=== PATIENT | male | born 1935 | race Caucasian/White ===

== ENCOUNTER 2018-10-31 22:37 | Inpatient (IN) | payer OTHER ==
--- OUTSIDE RECORDS SUMMARY | 2018-10-31 22:39 | XMS REPORT | Clinical Summary ---
:1935 Author Organization [facility] Address [address] [place] [address] Care Team Providers Name Role Phone Unavailable Primary Care Provider Unavailable Allergies Not on File Medications Not on file Active Problems Not on file Social History Tobacco Use Types Packs/Day Years Used Date Never Assessed Sex Assigned at Date Recorded Not on file Job Start Date Occupation Industry Not on file Not on file Not on file Travel History Travel Start Travel End No recent travel history available. Last Filed Vital Signs Not on file Plan of Treatment Not on file Results Not on fileafter 10/30/2017
[2018-10-31 23:29] LABS: Absolute Lymphocytes (CBC) 1.1 K/uL (0.7-4.9); Absolute Monocytes 0.5 K/uL (0.1-1.3); Absolute Neutrophil 6.5 K/uL (1.8-8.0); Basophils % 1.1 % (0-1.3); Eosinophils % 2.9 % (0-4.4); Hematocrit 34.7 % (39.6-49.0); Lymphocytes % 13.5 % (15.3-44.8); MPV 8.2 fL (7.6-11.3); Monocytes % 6.2 % (3.3-12.3); Protime INR 1.26; RBC Red Blood Cell Count 3.87 M/uL (4.33-5.43)
[2018-10-31 23:42] LABS: ALT/SGPT 18 U/L (12-78); AST/SGOT 19 U/L (15-37); Albumin 2.1 g/dL (3.4-5.0); Alkaline Phosphatase 118 U/L (45-117); BUN Blood Urea Nitrogen 40 mg/dL (7-18); Bicarbonate 28 mmol/L (21-32); Bilirubin Direct < 0.1 mg/dL (0-0.2); Bilirubin Total 0.3 mg/dL (0.2-1.0); Glucose Level 114 mg/dL (74-106); Magnesium 2.7 mg/dL (1.8-2.4); NT PRO-BNP 3992 pg/mL (<450); Potassium 3.6 mmol/L (3.5-5.1); Protein, Total 7.1 g/dL (6.4-8.2); Sodium Level 159 mmol/L (136-145); Troponin (Emerg Dept Use Only) 0.04 ng/mL (0.0-0.045)
[2018-11-01 00:22] LABS: Urine Amorphous Sediment 2+ /HPF (NONE SEEN); Urine Culture Reflex Order NOT NEEDED
[2018-11-01 00:25] LABS: Urine Bacteria <20 /HPF (NONE SEEN); Urine RBC NONE SEEN /HPF (NONE SEEN)
--- NOTE | 2018-11-01 00:46 | ER ---
Nurse's Notes [facility] Name: Juan Bender Age: 83 yrs Sex: Male : 1935 Arrival Date: 10/31/2018 Time: 22:39 Bed 27 Private MD: Diagnosis: Hyperosmolality and hypernatremia;Dehydration Presentation: 10/31 22:39 Presenting complaint: EMS states: patient is from [facility], because rv of elevated Sodium and Chloride. blood was drawn after dinner. patient then started to get aggressive. no fever, or other symptoms reported. Transition of care: patient was not received from another setting of care. Onset of symptoms was October 31, 2018 at 20:00. Risk Assessment: Do you want to hurt yourself or someone else? Patient reports no desire to harm self or others. Initial Sepsis Screen: Does the patient meet any 2 criteria? No. Patient's initial sepsis screen is negative. Does the patient have a suspected source of infection? No. Patient's initial sepsis screen is negative. Care prior to arrival: None. 22:39 Method Of Arrival: EMS: [facility] rv 22:39 Acuity: ADE 3 rv Triage Assessment: 22:42 General: Appears in no apparent distress. uncomfortable, Behavior is combative, rv uncooperative. Pain: Unable to use pain scale. Patient is disoriented. EENT: No deficits noted. Neuro: Level of Consciousness is confused, Oriented to none. Cardiovascular: Capillary refill < 3 seconds. Respiratory: Airway is patent. GI: No signs and/or symptoms were reported involving the gastrointestinal system. : No signs and/or symptoms were reported regarding the genitourinary system. Derm: Skin with poor turgor seen blood stain on left hand. probably from checking the blood sugar. Musculoskeletal: No signs and/or symptoms reported regarding the musculoskeletal system. Historical: - Allergies: 22:52 Acetaminophen; rv 22:52 cefotaxime; rv 22:52 Hydrocodone-Acetaminophen; rv 22:52 MEPERIDINE \T\ RELATED; rv 22:52 oxycodone; rv - Home Meds: 22:52 ibuprofen 200 mg Oral cap 2 caps every 4-6 hours [Active]; ICaps AREDS 7,160-113-100 rv [id number] oral TbEC [Active]; losartan 50 mg oral tab [Active]; potassium chloride 20 mEq Oral TbER [Active]; thiamine HCl (vitamin B1) 100 mg Oral tab [Active]; - PMHx: 22:52 CAD; Cancer; Dementia; rv - PSHx: 22:52 CABG; rv - Immunization history:: Adult Immunizations up to date. - Social history:: Smoking status: unknown. - Ebola Screening: : No symptoms or risks identified at this time. Screenin:53 Abuse screen: Denies threats or abuse. Denies injuries from another. Nutritional rv screening: No deficits noted. Tuberculosis screening: No symptoms or risk factors identified. Fall Risk None identified. Assessment: 22:40 General: Appears in no apparent distress. uncomfortable, Behavior is combative, ca1 inappropriate for age. Pain: Unable to use pain scale. Patient is disoriented. Patient appears to be moaning. Neuro: Level of Consciousness is awake, confused, Oriented to none reports this is pt's baseline neurologic status. Cardiovascular: Heart tones S1 S2 present Capillary refill < 3 seconds Patient's skin is warm and dry. Respiratory: Airway is patent Respiratory effort is even, unlabored, Respiratory pattern is regular, symmetrical, Breath sounds are clear bilaterally. GI: Abdomen is round non-distended, Bowel sounds present X 4 quads. Abd is soft and non tender X 4 quads. : No deficits noted. No signs and/or symptoms were reported regarding the genitourinary system. EENT: No deficits noted. No signs and/or symptoms were reported regarding the EENT system. Derm: Skin is intact, is healthy with good turgor, Skin is pink, warm \T\ dry. Musculoskeletal: Circulation, motion, and sensation intact. Capillary refill < 3 seconds. 23:30 Reassessment: at bedside. Pt reports she visits pt at residential everyday from ca1 0900 to 1830. reports pt had an episode of vomiting on Wednesday and was not feeling well. Wednesday pt had a fever of 101F and had a low grad fever over the weekend. The nurse at the residential took the blood test for Cl and Na at 1700 today which resulted to his visit in the ER for abnormal values. Notified Dr. Hurtado. Vital Signs: 22:53 BP 121 / 77; Pulse 90; Resp 29; Temp 98.8; Pulse Ox 91% on R/A; Weight 90.72 kg; rv 22:53 Pulse Ox 94% on 2 lpm NC; rv 11/01 00:01 BP 114 / 79; Pulse 87; Resp 25; Pulse Ox 95% on 2 lpm NC; ca1 00:30 BP 118 / 70; Pulse 87; Resp 25; Pulse Ox 95% on 2 lpm NC; rv 02:48 BP 114 / 63; Pulse 84; Resp 21; Pulse Ox 96% on 2 lpm NC; rv ED Course: 10/31 22:39 Patient arrived in ED. rv 22:40 Olvin Hurtado MD is Attending Physician. tw4 22:42 Triage completed. rv 22:52 Arm band placed on right wrist. rv 22:52 Patient has correct armband on for positive identification. Bed in low position. Call rv light in reach. Side rails up X2. Adult w/ patient. quality assurance monitor chassis on. Pulse ox on. NIBP on. 22:57 Erin Ansari RN is Primary Nurse. ca1 22:58 XRAY Chest (1 view) In Process Unspecified. EDMS 23:15 Inserted saline lock: 20 gauge in right forearm, using aseptic technique. Blood ca1 collected. 23:40 Straight cath inserted, using sterile technique, 16 Fr. Specimen obtained. Returned ca1 victor manuel urine. Patient tolerated well. 23:45 Notified ED physician of a critical lab result(s). cloride of 128, sodium of 159. Dr angus Hurtado notified. 11/01 00:45 Sony Powell MD is Hospitalizing Provider. tw4 02:50 No provider procedures requiring assistance completed. Patient admitted, IV remains in rv place. Administered Medications: No medications were administered Outcome: 00:46 Decision to Hospitalize by Provider. tw4 02:50 Admitted to Med/surg accompanied by nurse, via stretcher, room 211, with chart, Report rv called to BEAU HARTMANN 02:50 Condition: stable 02:50 Instructed on the need for admit. 03:33 Patient left the ED. rv Signatures: Dispatcher [employer] EDMS Amy Peguero RN RN bb Wadley, Terrence, MD MD tw4 Herve Navarro RN RN rv Erin Ansari RN RN ca1 Corrections: (The following items were deleted from the chart) 00:01 10/31 23:30 Reassessment: at bedside. Pt reports she visits pt at residential ca1 everyday from 0900 to 1830. reports pt had an episode of vomiting on Wednesday and was not feeling well. Wednesday pt had a fever of 101F and had a low grad fever over the weekend. The nurse at the residential took the blood test at 1700 today which resulted to his visit in the ER ca1 11/01 00:32 10/31 23:45 Notified ED physician of a critical lab result(s). cloride of 128. Dr angus Hurtado notified angus
--- NOTE | 2018-11-01 00:46 | EDPHYS ---
Physician Documentation [facility] Name: Juan Bender Age: 83 yrs Sex: Male : 1935 Arrival Date: 10/31/2018 Time: 22:39 Bed 27 Private MD: ED Physician Olvin Hurtado HPI: 11/01 06:55 This 83 yrs old Male presents to ER via EMS with complaints of Abnormal Lab tw4 Results. 06:55 abnormal labs. Onset: The symptoms/episode began/occurred today. Severity of symptoms: tw4 At their worst the symptoms were moderate in the emergency department the symptoms are unchanged. The patient has not experienced similar symptoms in the past. Historical: - Allergies: 10/31 22:52 Acetaminophen; rv 22:52 cefotaxime; rv 22:52 Hydrocodone-Acetaminophen; rv 22:52 MEPERIDINE \T\ RELATED; rv 22:52 oxycodone; rv - Home Meds: 22:52 ibuprofen 200 mg Oral cap 2 caps every 4-6 hours [Active]; ICaps AREDS 7,160-113-100 rv [id number] oral TbEC [Active]; losartan 50 mg oral tab [Active]; potassium chloride 20 mEq Oral TbER [Active]; thiamine HCl (vitamin B1) 100 mg Oral tab [Active]; - PMHx: 22:52 CAD; Cancer; Dementia; rv - PSHx: 22:52 CABG; rv - Immunization history:: Adult Immunizations up to date. - Social history:: Smoking status: unknown. - Ebola Screening: : No symptoms or risks identified at this time. ROS: 11/01 06:55 Constitutional: Negative for fever, chills, and weight loss, Eyes: Negative for injury, tw4 pain, redness, and discharge, Cardiovascular: Negative for chest pain, palpitations, and edema, Respiratory: Negative for shortness of breath, cough, wheezing, and pleuritic chest pain, Abdomen/GI: Negative for abdominal pain, nausea, vomiting, diarrhea, and constipation, Back: Negative for injury and pain, MS/Extremity: Negative for injury and deformity, Skin: Negative for injury, rash, and discoloration. Exam: 06:55 Constitutional: This is a well developed, well nourished patient who is awake, alert, tw4 and in no acute distress. Head/Face: Normocephalic, atraumatic. Chest/axilla: Normal chest wall appearance and motion. Nontender with no deformity. No lesions are appreciated. Cardiovascular: Regular rate and rhythm with a normal S1 and S2. No gallops, murmurs, or rubs. Normal PMI, no JVD. No pulse deficits. Respiratory: Lungs have equal breath sounds bilaterally, clear to auscultation and percussion. No rales, rhonchi or wheezes noted. No increased work of breathing, no retractions or nasal flaring. Abdomen/GI: Soft, non-tender, with normal bowel sounds. No distension or tympany. No guarding or rebound. No evidence of tenderness throughout. Back: No spinal tenderness. No costovertebral tenderness. Full range of motion. MS/ Extremity: Pulses equal, no cyanosis. Neurovascular intact. Full, normal range of motion. 06:55 Neuro: Orientation: to person, place, time, situation, Mentation: slow to respond, Memory: is normal. Vital Signs: 10/31 22:53 BP 121 / 77; Pulse 90; Resp 29; Temp 98.8; Pulse Ox 91% on R/A; Weight 90.72 kg; rv 22:53 Pulse Ox 94% on 2 lpm NC; rv 11/01 00:01 BP 114 / 79; Pulse 87; Resp 25; Pulse Ox 95% on 2 lpm NC; ca1 00:30 BP 118 / 70; Pulse 87; Resp 25; Pulse Ox 95% on 2 lpm NC; rv 02:48 BP 114 / 63; Pulse 84; Resp 21; Pulse Ox 96% on 2 lpm NC; rv MDM: 10/31 22:40 Patient medically screened. tw11/01 06:55 Data reviewed: vital signs, nurses notes. Counseling: I had a detailed discussion with [facility] the patient and/or guardian regarding: the historical points, exam findings, and any diagnostic results supporting the discharge/admit diagnosis. Physician consultation: Sony Powell MD was called at 07:00, regarding admission, to the telemetry unit. patient's condition. 10/31 22:41 Order name: Basic Metabolic Panel; Complete Time: 00:02 tw4 11/01 00:03 Interpretation: Normal except: NA 159; CL 128; GLUC 114; BUN 40; GFR 80. tw4 10/31 22:41 Order name: CBC with Diff; Complete Time: 00:03 11/01 00:03 Interpretation: Normal except: WBC 8.5; RBC 3.87; HGB 11.4; HCT 34.7; LYM% 13.5; JACKELINE% tw4 76.3; RDW 16.0. 10/31 22:41 Order name: LFT's; Complete Time: 00:03 11/01 00:03 Interpretation: Normal except: ALK 118; ALB 2.1; GLOB 5.0; A/G 0.4. 10/31 22:41 Order name: Magnesium; Complete Time: 00:03 11/01 00:03 Interpretation: Normal except: MG 2.7. 10/31 22:41 Order name: NT PRO-BNP; Complete Time: 00:03 11/01 00:03 Interpretation: NT PRO-BNP 3992. 10/31 22:41 Order name: PT-INR 10/31 22:41 Order name: Troponin (emerg Dept Use Only) 10/31 22:41 Order name: XRAY Chest (1 view) 10/31 23:51 Order name: Urine Microscopic Only EDMS 11/01 02:27 Order name: Basic Metabolic Panel MS 11/01 02:27 Order name: Basic Metabolic Panel EDMS 11/01 02:27 Order name: CBC with Automated Diff EDMS 11/01 02:27 Order name: CBC with Automated Diff MS 10/31 22:41 Order name: EKG; Complete Time: 22:42 10/31 22:41 Order name: Cardiac monitoring; Complete Time: 22:58 10/31 22:41 Order name: EKG - Nurse/Tech; Complete Time: 23:22 10/31 22:41 Order name: IV Saline Lock; Complete Time: 23:22 10/31 22:41 Order name: Labs collected and sent; Complete Time: 23:22 10/31 22:41 Order name: O2 Per Protocol; Complete Time: 22:58 10/31 22:41 Order name: O2 Sat Monitoring; Complete Time: 22:58 10/31 23:10 Order name: Urine Dipstick-Ancillary (obtain specimen); Complete Time: 23:46 /13 23:47 Order name: Straight Cath; Complete Time: 23:47 ca1 Administered Medications: No medications were administered Disposition: 11/01/18 00:46 Hospitalization ordered by Sony Powell for Observation. Preliminary diagnosis are Hyperosmolality and hypernatremia, Dehydration. - Bed requested for Telemetry/MedSurg (observation). - Status is Observation. rv - Condition is Fair. - Problem is new. - Symptoms are unchanged. UTI on Admission? No Signatures: Dispatcher [employer] EDWY Debby Arenas RN RN Olvin He MD MD tw4 Herve Navarro RN RN rv Erin Ansari RN RN ca1 Corrections: (The following items were deleted from the chart) 00:21 00:08 UA MICROSCOPIC+U.LAB.BRZ ordered. [facility] EDWY 02:31 00:46 Hospitalization Ordered by Sony Powell MD for Observation. Preliminary diagnosis mw is Hyperosmolality and hypernatremia; Dehydration. Bed requested for Telemetry/MedSurg (observation). Status is Observation. Condition is Fair. Problem is new. Symptoms are unchanged. UTI on Admission? No. tw4 03:33 02:31 11/01/2018 00:46 Hospitalization Ordered by Sony Powell MD for Observation. rv Preliminary diagnosis is Hyperosmolality and hypernatremia; Dehydration. Bed requested for Telemetry/MedSurg (observation). Status is Observation. Condition is Fair. Problem is new. Symptoms are unchanged. UTI on Admission? No. mw
[2018-11-01] MEDS ORDERED: ACETAMINOPHEN 500 MG TAB PO PRN (02:25)
[2018-11-01 03:47] VITALS: BMI 25.2
[2018-11-01] MEDS ORDERED: D5 0.45 NS 1,000 ML IV SCH (06:00)
--- NOTE | 2018-11-01 07:46 | RAD REPORT ---
EXAM DESCRIPTION: Yue Single View10/31/2018 10:59 pm CLINICAL HISTORY: Shortness of breath COMPARISON: August 2017 FINDINGS: Mild bilateral pulmonary opacities. The heart is mildly enlarged. Postsurgical changes inv olve the chest IMPRESSION: Mild bilateral pulmonary opacities probably represent mild CHF
--- NOTE | 2018-11-01 07:55 | EKG ---
Test Date: 2018-10-31 Test Time: 23:16:36 Backwinder: BATSHEVA MEASUREMENT RESULTS: Intervals: Rate: 89 HI: 190 QRSD: 150 QT: 430 QTc: 523 [place]: P: 40 HI: 190 QRS: -44 T: 104 INTERPRETIVE STATEMENTS: Sinus rhythm with frequent and consecutive premature ventricular complexes Left axis deviation Intraventricular conduction delay Abnormal ECG Compared to ECG 08/28/2017 15:44:49 no significant change from previous ECG Electronically Signed On 11-01-18 07:54:51 CDT by Naveed Reece
[2018-11-01] MEDS: D5 0.45 NS 1,000 ML IV SCH ×2 (09:47→17:21)
[2018-11-01] MEDS: HEPARIN 5000 UNIT/ML 1 ML VIAL SQ SCH ×2 (09:48→20:14)
[2018-11-02] MEDS: D5 0.45 NS 1,000 ML IV SCH (03:23)
--- NOTE | 2018-11-02 05:08 | HP ---
Date of Admission: 11/01/2018 Chief Complaint: Fever, altered mental status. History Of Present Illness: This is an 83-year-old, very pleasant male patient who has significant d ementia problem and his dementia has progressed significantly in last few months to the extent that luis olvera recognizes his , but otherwise he is not ambulating and he gets from bed to wheelchair with ass istance, but not able to transfer himself at all. He is on special diet at [facility]. repor ramana that on of last week he had 1 episode of vomiting and then started to have some fever, w hich actually subsided but just had some low-grade fever around 99, but last 24 hours or so he has be en very lethargic, is not eating and drinking enough in last few days so he was sent to emergency [facility]. After he was evaluated in the ER, he was admitted to the hospital. The patient does not communic ate or answer any questions. This morning when I saw him, he was lying in bed but not answering any questions with altered mental status. was at bedside. Medications: List reviewed. Review of Systems: PATTERN DRAFTER: As mentioned above. Constitutional: As mentioned above. GI: As mentioned above. All other systems reviewed and negative. Allergies: TO HYDROCODONE, DEMEROL, AND CEFOTAXIME. Past Medical History: Significant for advanced dementia, diverticulosis, coronary artery disease, an emia, generalized weakness, debility, osteoarthritis at multiple sites, prostate cancer, endocarditis , urinary tract infection. Past Surgical History: Not pertinent. Family History: Not pertinent. Social History: Negative for smoking, alcohol use. Physical Examination: Vital Signs: His recent vital signs when he came into emergency room, temperature 97.9, pulse rate 90 , respiratory rate 20, blood pressure 133/81, oxygen saturation 91%, height 5 feet 10 inches, weight 176 pounds. General: The patient lying in bed. Not oriented, not answering any questions. Not in any distress. HEENT: Head atraumatic, normocephalic. Conjunctivae nonerythematous. Sclerae white. Mouth, no thr ush or edema noted. Ears/Nose, no mass, lesion, discharge noted. Neck: Supple. No JVD, lymph nodes, bruit, thyromegaly noted. Lungs: Bilateral good equal air entry. Clear to auscultation. No rhonchi. No rales. Heart: Normal heart sounds, no murmur or gallop. Abdomen: Soft, bowel sounds normal. No guarding, rigidity, tenderness, mass, hepatosplenomegaly, dis tention, or bruit noted. Extremities: No leg edema. No calf tenderness. Skin: No rash, ulcer, cellulitis. Lymphatics: No lymph node enlargement in neck, supraclavicular, infraclavicular region. Neuro: The patient is totally disoriented and detail PATTERN DRAFTER exam not possible, but he was noted to be m oving both upper extremities spontaneously on his own. Chest: Unremarkable. External Genitalia: Deferred. Rectal: Deferred. Laboratory Data: White count 8.5, hemoglobin 11.4, platelets 292. Sodium 159, potassium 3.6, chlori de 128, bicarb 28, BUN 40, creatinine 0.90, glucose 114. Liver function tests unremarkable. Troponi n 0.04. Urinalysis was negative for any evidence of urinary tract infection. Impression: 1.Volume depletion. 2.Encephalopathy, metabolic. 3.Senile dementia. 4.Anemia, unspecified. 5.Diverticulosis. 6.Coronary artery disease. 7.Osteoarthritis, multiple sites. 8.Prostate cancer. Plan: Admit the patient to hospital for further evaluation and management of this problem. The kp ent is appropriate for inpatient and is expected to spend 2 midnights in hospital. The patient jovana fermin is not able to swallow any medications or food or liquids safely by mouth. We will have to wait until his altered mental status resolves and then we will consider to resume his oral medication as well as diet. Meanwhile, we will support him with IV fluid D5 half-normal saline. We will monitor h is blood work, repeat electrolytes tomorrow morning and there is no evidence of any infection at this point anywhere, no need for any antibiotics. Advance directives discussed with the patient's a nd according to her decision, DNR order was written in the chart. Overall, prognosis is poor. TROY/MODL Voice ID: [id number]
[2018-11-02 06:07] LABS: Absolute Lymphocytes (CBC) 0.9 K/uL (0.7-4.9); Absolute Monocytes 0.4 K/uL (0.1-1.3); Absolute Neutrophil 6.3 K/uL (1.8-8.0); Basophils % 0.9 % (0-1.3); Eosinophils % 7.3 % (0-4.4); Hematocrit 33.2 % (39.6-49.0); Lymphocytes % 10.4 % (15.3-44.8); MPV 8.3 fL (7.6-11.3); Monocytes % 4.5 % (3.3-12.3); RBC Red Blood Cell Count 3.65 M/uL (4.33-5.43)
[2018-11-02 06:29] LABS: BUN Blood Urea Nitrogen 25 mg/dL (7-18); Bicarbonate 27 mmol/L (21-32); Glucose Level 99 mg/dL (74-106); Potassium 3.6 mmol/L (3.5-5.1); Sodium Level 157 mmol/L (136-145)
[2018-11-02] MEDS: FLUOXETINE 20 MG CAP PO SCH (09:00)
[2018-11-02] MEDS: D5W 1,000 ML IV SCH ×2 (09:31→18:08)
[2018-11-02] MEDS: HEPARIN 5000 UNIT/ML 1 ML VIAL SQ SCH ×2 (09:32→20:27)
[2018-11-02] MEDS: ASPIRIN EC 81 MG TAB PO SCH (12:40)
[2018-11-02] MEDS: FAMOTIDINE 20 MG TAB PO SCH ×2 (12:40→20:28)
[2018-11-02] MEDS: FOLIC ACID 1 MG TABLET PO SCH (12:40)
[2018-11-02] MEDS: THIAMINE HCL 100 MG TABLET PO SCH (12:40)
[2018-11-02] MEDS: DIVALPROEX NA 125 MG CAP PO SCH (20:28)
[2018-11-02] MEDS ORDERED: IBUPROFEN 400 MG TAB PO PRN (21:33)
--- NOTE | 2018-11-02 23:58 | PN ---
Date of Progress Note: 11/02/2018 Subjective: The patient was seen this morning for followup. He was lying in bed. Continues to have significant altered mental status, which patient's reports today that this is his baseline, and this is how he has been at the shelter. Objective: Vital Signs: Reviewed. HEENT: Examination unremarkable. LUNGS: Clear to auscultation. HEART: Sounds normal. ABDOMEN: Soft. Bowel sounds normal. No guarding, rigidity, tenderness, or distention. Extremities: No leg edema. Laboratory Data: White count 8.2, hemoglobin 10.6, platelets 264. Sodium 157, potassium 3.6, chlori de 128, BUN 25, creatinine 0.67, glucose 99, bicarb 27. Impression: 1.Acute renal failure, improving. 2.Volume depletion, improving. 3.Senile dementia, advance. 4.Rule out urinary tract infection. Plan: We will go ahead and repeat urine analysis and urine culture considering today the patient was reported to have some foul-smelling urine. Initial urine analysis was negative. I have changed IV fluid to D5W, and we will monitor blood work including electrolytes tomorrow. Pureed diet was ordere d. says that this is how at his baseline mental status is at shelter and we will have assist with feeding as he tolerates. I did talk to patient's about considering hospice care up on discharge to go to shelter and she will communicate with shelter staff and shelter physician upon discharge. Overall prognosi s is poor. TROY/MODL Voice ID: [id number] Report ID: [id number]
[2018-11-03] MEDS: D5W 1,000 ML IV SCH ×2 (04:08→14:39)
[2018-11-03 08:22] LABS: BUN Blood Urea Nitrogen 21 mg/dL (7-18); Bicarbonate 22 mmol/L (21-32); Glucose Level 89 mg/dL (74-106); Magnesium 2.4 mg/dL (1.8-2.4); Potassium 4.4 mmol/L (3.5-5.1); Sodium Level 152 mmol/L (136-145)
[2018-11-03 08:27] LABS: Absolute Lymphocytes (CBC) 0.9 K/uL (0.7-4.9); Absolute Monocytes 0.2 K/uL (0.1-1.3); Absolute Neutrophil 5.1 K/uL (1.8-8.0); Basophils % 0.7 % (0-1.3); Eosinophils % 8.3 % (0-4.4); Hematocrit 33.5 % (39.6-49.0); Lymphocytes % 12.5 % (15.3-44.8); MPV 8.3 fL (7.6-11.3); Monocytes % 3.4 % (3.3-12.3); RBC Red Blood Cell Count 3.67 M/uL (4.33-5.43)
[2018-11-03] MEDS: FLUOXETINE 20 MG CAP PO SCH (09:29)
[2018-11-03] MEDS: THIAMINE HCL 100 MG TABLET PO SCH (09:29)
[2018-11-03] MEDS: FOLIC ACID 1 MG TABLET PO SCH (09:29)
[2018-11-03] MEDS: FAMOTIDINE 20 MG TAB PO SCH ×2 (09:30→21:55)
[2018-11-03] MEDS: HEPARIN 5000 UNIT/ML 1 ML VIAL SQ SCH ×2 (09:30→21:56)
[2018-11-03] MEDS: ASPIRIN EC 81 MG TAB PO SCH (09:30)
[2018-11-03 10:30] LABS: Urine Appearance CLOUDY; Urine Bilirubin NEGATIVE (NEG); Urine Blood 3+ (NEG); Urine Color YELLOW; Urine Glucose NEGATIVE (NEG); Urine Protein NEGATIVE (NEG); Urine pH 5.5 (5.0-7.0)
[2018-11-03 11:07] LABS: Urine Bacteria >50 /HPF (NONE SEEN); Urine Culture Reflex Order NOT NEEDED; Urine Mucus LIGHT /HPF (NONE SEEN)
[2018-11-03] MEDS: DIVALPROEX NA 125 MG CAP PO SCH (21:55)
[2018-11-04] MEDS: D5W 1,000 ML IV SCH ×2 (00:39→10:00)
--- NOTE | 2018-11-04 01:54 | PN ---
Date of Progress Note: 11/03/2018 Subjective: The patient was seen this morning for followup. His mental status actually has improved . This morning he was much better. Did not recognize me, does not communicate much, but appeared lo t better overall compared to last couple of days. was at bedside. Objective: Vital Signs: Reviewed. HEENT: Unremarkable. Lungs: Clear to auscultation. Heart: Sounds normal. Abdomen: Soft, bowel sounds normal. No guarding, rigidity, tenderness, distention. Extremities: No leg edema. Laboratory Data: Blood work was ordered this morning along with a urinalysis and for urinalysis nurs e will have to do straight cath as the patient has incontinence problem. Impression: 1.Volume depletion. 2.Acute renal failure. 3.Senile dementia. 4.Rule out urinary tract infection. Plan: We will continue current IV fluid. Continue current medications and I will see him tomorrow f or followup. Depending on pending test results and patient's condition, we will decide if he can be discharged tomorrow or not. Details were discussed with the patient's . TROY/MODL Voice ID: [id number] Report ID: [id number]
[2018-11-04 06:33] LABS: BUN Blood Urea Nitrogen 16 mg/dL (7-18); Bicarbonate 25 mmol/L (21-32); Glucose Level 87 mg/dL (74-106); Potassium 3.3 mmol/L (3.5-5.1); Sodium Level 146 mmol/L (136-145)
[2018-11-04] MEDS ORDERED: POTASSIUM CL SA 10 MEQ TAB PO ONE (07:12)
[2018-11-04] MEDS: FOLIC ACID 1 MG TABLET PO SCH (09:00)
[2018-11-04] MEDS: THIAMINE HCL 100 MG TABLET PO SCH (09:00)
[2018-11-04] MEDS ORDERED: CIPROFLOXACIN HCL 500 MG TAB PO SCH (09:00)
[2018-11-04] MEDS: FAMOTIDINE 20 MG TAB PO SCH (09:00)
[2018-11-04] MEDS: FLUOXETINE 20 MG CAP PO SCH (09:21)
[2018-11-04] MEDS: ASPIRIN EC 81 MG TAB PO SCH (09:21)
[2018-11-04] MEDS: HEPARIN 5000 UNIT/ML 1 ML VIAL SQ SCH (09:22)
[2018-11-04 10:42] VITALS: BP 115/57; TEMP 97.3
[2018-11-04 11:49] VITALS: O2SAT 92
--- NOTE | 2018-11-05 03:38 | DS ---
Date of Discharge: 11/04/2018 Disposition: Discharged to go back to [facility]. Physical Examination: HEENT: Unremarkable. Lungs: Clear to auscultation. Heart: Sounds normal. Abdomen: Soft. Bowel sounds normal. No guarding, rigidity, tenderness, distention. Extremities: No leg edema. Laboratory Data: Initial sodium 159, potassium 3.6, chloride 128, bicarb 28, BUN 40, creatinine 0.90 , glucose 114. Liver function tests unremarkable except alkaline phosphatase 118. Troponin 0.04. L ast sodium this morning 146, potassium 3.3, chloride 116, bicarb 25, BUN 16, creatinine 0.59, glucose 87. Initial white count 8.5, hemoglobin 11.4, platelets 293. Yesterday, white count 6.9, hemoglobi n 10.6, platelets 264. Discharge Medications And Instructions: 1.Continue all prior [facility] medication except stop furosemide and stop potassium. 2.Take Cipro 500 mg twice a day for 1 week. Hospital Course: An 83-year-old male patient with significant advanced dementia problem, living at [facility], was brought into emergency room with fever and altered mental status. Please see dictat ed H and P for more information. After patient was evaluated in the ER, he was admitted to the [facility] with volume depletion problem and acute kidney injury. The patient had metabolic encephalopathy, which actually has improved during this hospitalization as his volume depletion problem and acute ki dney injury problem improved. His encephalopathy problem has improved. He is back to his baseline a s reported by the patient's . As of yesterday, his mental status was much better. He does not r ecognize me. He does recognize his , but that is his baseline, otherwise, does not recognize any body else. assists him with the feeding. He usually has a pureed diet with thickened liquids. I did talk to the patient's about importance of hydration and she stays at [facility] all day to assist with his care and I did also communicate with her regarding consideration of hospice care and she will communicate with the [facility] staff after he gets discharged to go back to [facility]. Overall, long-term prognosis is poor. His initial urinalysis was negative, but repeat urinalys is from yesterday does show evidence of urinary tract infection. Urine culture has grown mixed mateo as of this morning. We will start him on antibiotics Cipro 500 mg twice a day for 1 week. Final Diagnoses: 1.Volume depletion. 2.Acute kidney injury. 3.Encephalopathy, metabolic. 4.Urinary tract infection. 5.Senile dementia. 6.Anemia, unspecified. 7.Diverticulosis. 8.Coronary artery disease. 9.Osteoarthritis, multiple sites. 10.Prostate cancer. TROY/MODL Voice ID: [id number] Report ID: [id number]
== END 2018-11-04 14:29 | DRG 682 ==
LOC: ER 22:37 → ERHOLD 11-01 02:42 → 2ND 11-01 02:52
PROVIDERS: ADMIT Internal Medicine; ATTEND Internal Medicine
DX: N17.9 Acute kidney failure, unspecified (principal); G93.41 Metabolic encephalopathy; N39.0 Urinary tract infection, site not specified; E86.9 Volume depletion, unspecified; F03.90 Unspecified dementia, unspecified severity, without behavioral disturbance, psychotic disturbance, mood disturbance, and anxiety; Z66 Do not resuscitate; D64.9 Anemia, unspecified; C61 Malignant neoplasm of prostate; K57.90 Diverticulosis of intestine, part unspecified, without perforation or abscess without bleeding; I25.10 Atherosclerotic heart disease of native coronary artery without angina pectoris; M15.9 Polyosteoarthritis, unspecified
CPT/HCPCS: 36415; 51702; 71045; 80048; 80076; 80164; 81001; 81015; 83735; 83880; 84484; 85025; 85610; 87086; 87088; 93005; 96365; 96367; 99285; J1644

== ENCOUNTER 2018-11-12 10:57 | Inpatient (IN) | payer OTHER ==
--- OUTSIDE RECORDS SUMMARY | 2018-11-12 10:59 | XMS REPORT | Clinical Summary ---
:1935 Author Organization [facility] Address [address] [place] [address] Care Team Providers Name Role Phone Unavailable [...] Not on file Results Not on fileafter 11/11/2017
[2018-11-12 11:17] LABS: Arterial Blood Carboxyhemoglob 0.8 % (0-1.5); Blood Gas Oxyhemoglobin 96.1 % (94-97); Blood O2 Saturation 97.8 % (92-98.5)
[2018-11-12] MEDS ORDERED: NA CHLORIDE 0.9% 3,000 ML ONE (11:21)
--- NOTE | 2018-11-12 11:28 | RAD REPORT ---
EXAM DESCRIPTION: RAD - Chest Single View - 11/12/2018 11:12 am CLINICAL HISTORY: Dyspnea;Fever Chest pain. COMPARISON: Chest Single View dated 10/31/2018; Chest Single View dated 09/01/2017; Chest Single View dated 08/28/2017; Chest Single View dated 06/14/2017 FINDINGS: Portable technique limits examination quality. Emphysematous changes are present throughout the lungs. Reticular opacities bilaterally may represent mild atypical pulmonary infection. The heart is mildly enlarged in size. No displaced fractures.Ster notomy wires present.
[2018-11-12] MEDS ORDERED: ALBUTEROL 2.5 MG/3 ML NEB SOL ONE (11:31)
[2018-11-12] MEDS ORDERED: METHYLPREDNISOLONE 125 MG INJ ONE (11:31)
[2018-11-12] MEDS ORDERED: IPRATROPIUM BROM 0.5MG/2.5ML ONE (11:31)
[2018-11-12] MEDS ORDERED: PIPER/TAZO/NS 3.375gm 3.375 GM/100 ML BAG ONE (11:32)
[2018-11-12] MEDS ORDERED: ACETAMINOPHEN 650MG/RECT SUPP PR ONE (11:32)
[2018-11-12 11:54] LABS: Absolute Lymphocytes (CBC) 0.7 K/uL (0.7-4.9); Absolute Monocytes 0.6 K/uL (0.1-1.3); Absolute Neutrophil 4.7 K/uL (1.8-8.0); Basophils % 2.3 % (0-1.3); Eosinophils % 0.2 % (0-4.4); Hematocrit 32.2 % (39.6-49.0); Lymphocytes % 11.6 % (15.3-44.8); MPV 7.6 fL (7.6-11.3); Monocytes % 9.2 % (3.3-12.3); RBC Red Blood Cell Count 3.58 M/uL (4.33-5.43)
[2018-11-12 12:00] LABS: Protime INR 1.22
[2018-11-12 12:12] LABS: ALT/SGPT 14 U/L (12-78); AST/SGOT 18 U/L (15-37); Albumin 2.2 g/dL (3.4-5.0); Alkaline Phosphatase 88 U/L (45-117); BUN Blood Urea Nitrogen 25 mg/dL (7-18); Bicarbonate 26 mmol/L (21-32); Bilirubin Direct 0.2 mg/dL (0-0.2); Bilirubin Total 0.4 mg/dL (0.2-1.0); Creatine Phosphokinase 30 U/L (39-308); Glucose Level 119 mg/dL (74-106); Lipase 52 U/L (73-393); Potassium 4.7 mmol/L (3.5-5.1); Protein, Total 6.9 g/dL (6.4-8.2); Sodium Level 146 mmol/L (136-145); Troponin (Emerg Dept Use Only) 0.25 ng/mL (0.0-0.045)
[2018-11-12 12:31] LABS: Urine Blood NEGATIVE (NEG); Urine Glucose NEGATIVE (NEG); Urine Protein 1+ (NEG); Urine pH 5.5 (5.0-7.0)
[2018-11-12 12:35] LABS: Urine Bacteria <20 /HPF (NONE SEEN); Urine Culture Reflex Order REFLEXED; Urine Mucus 2+ /HPF (NONE SEEN); Urine RBC <5 /HPF (NONE SEEN)
--- NOTE | 2018-11-12 12:58 | ER ---
Nurse's Notes [facility] Name: Juan Bender Age: 83 yrs Sex: Male : 1935 Arrival Date: 11/12/2018 Time: 10:58 Bed 3 Private MD: Diagnosis: Influenza due to certain identified influenza viruses;Acute respiratory failure;Altered mental status, unspecified;Dehydration Presentation: 11/12 10:59 Presenting complaint: EMS states: coming from [facility], on respiratory hj distress status, per paper, pt on DNR status, pt is transition ing to hospice care; BGL- 135; T- 103- Axillary; BP- 122/70; HR- 115; RR- 30; O2 sat- 94% on 4L;. Transition of care: patient was received from another setting of care (long-term care facility), [facility]. Onset of symptoms was November 12, 2018. Risk Assessment: Do you want to hurt yourself or someone else? Patient reports no desire to harm self or others. Initial Sepsis Screen: Does the patient meet any 2 criteria? Yes Does the patient have a suspected source of infection? Yes: Productive cough/pneumonia. Care prior to arrival: None. 10:59 Method Of Arrival: EMS: [facility] 10:59 Acuity: ADE 1 hj Triage Assessment: 11:08 General: Appears in no apparent distress. uncomfortable, Behavior is unresponsive. hj Respiratory: Reports Onset: The symptoms/episode began/occurred the patient has severe shortness of breath. 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 - Social history:: Smoking status: unknown. - Ebola Screening: : Patient negative for fever greater than or equal to 101.5 degrees Fahrenheit, and additional compatible Ebola Virus Disease symptoms Patient denies exposure to infectious person Patient denies travel to an Ebola-affected area in the 21 days before illness onset. Screenin:07 Abuse screen: Denies threats or abuse. Denies injuries from another. Nutritional hj screening: No deficits noted. Tuberculosis screening: No symptoms or risk factors identified. Fall Risk None identified. Assessment: 11:07 Pain: Unable to use pain scale. Patient is unresponsive. Cardiovascular: Rhythm is. hj Respiratory: Airway is patent Respiratory effort is labored, shallow, Respiratory pattern is tachypnea 11:07 General: Appears in no apparent distress. uncomfortable, Behavior is unresponsive. hj Neuro: Level of Consciousness is unresponsive. GI: No signs and/or symptoms were reported involving the gastrointestinal system. : No signs and/or symptoms were reported regarding the genitourinary system. EENT: No signs and/or symptoms were reported regarding the EENT system. Derm: No signs and/or symptoms reported regarding the dermatologic system. Musculoskeletal: No signs and/or symptoms reported regarding the musculoskeletal system. 11:08 Reassessment: code sepsis called; RT at bedside with ED PA;. hj 11:15 Reassessment: in room;. hj 12:32 Reassessment: Patient and/or family updated on plan of care and expected duration. Pain hj level reassessed. continuously monitored; in room updated with POC;. 13:15 Reassessment: Patient and/or family updated on plan of care and expected duration. Pain hj level reassessed. provider in room for do kosana tube placement;. 13:46 Reassessment: Patient and/or family updated on plan of care and expected duration. Pain hj level reassessed. oksana placement confirmed by XRAY KUB;. 14:27 Reassessment: Patient and/or family updated on plan of care and expected duration. Pain hj level reassessed. awaiting for room placement; in the room;. Vital Signs: 11:04 BP 137 / 81; Pulse 113; Resp 24; Temp 101.2(R); Pulse Ox 97% on BiPAP; Weight 77.56 kg; hj Height 5 ft. 10 in. (177.80 cm); 11:41 BP 142 / 89; Pulse 106; Resp 32; Pulse Ox 96% on BiPAP; hj 12:07 BP 131 / 86; Pulse 101; Resp 25; Temp 98.6(A); Pulse Ox 99% on BiPAP; tr5 12:27 BP 118 / 71; Pulse 94; Resp 28; Pulse Ox 96% on BiPAP; hj 12:37 BP 108 / 83; Pulse 91; Resp 24; Pulse Ox 95% on BiPAP; hj 13:24 BP 120 / 81; Pulse 96; Resp 24; Pulse Ox 96% on BiPAP; hj 13:35 BP 102 / 83; Pulse 95; Resp 22; Pulse Ox 94% on BiPAP; hj 13:47 BP 126 / 73; Pulse 96; Resp 22; Pulse Ox 98% on BiPAP; hj 14:26 BP 129 / 78; Pulse 95; Resp 27; Pulse Ox 96% on BiPAP; hj 11:04 Body Mass Index 24.53 (77.56 kg, 177.80 cm) hj Suzy Coma Score: 12:50 Eye Response: none(1). Verbal Response: none(1). Motor Response: withdraws from jr8 pain(4). Total: 6. ED Course: 10:58 Patient arrived in ED. hj 10:59 Nabor Queen PA is PHCP. jr8 10:59 Kameron Eason MD is Attending Physician. jr8 11:03 Triage completed. hj 11:08 Arm band placed on right wrist. hj 11:08 Patient has correct armband on for positive identification. Placed in gown. Bed in low hj position. Call light in reach. Side rails up X2. Adult w/ patient. 11:12 Chest Single View XRAY In Process Unspecified. EDMS 11:20 Initial lab(s) drawn, by ED staff, sent to lab. First set of blood cultures drawn by ED hj staff. 11:38 Inserted saline lock: 20 gauge in right hand, using aseptic technique. Blood collected. hj 11:39 Second set of blood cultures drawn Urine collected: Augustine catheter specimen, victor manuel hj colored, EKG done, by ED staff, reviewed by Nabor MOSQUEDA. 11:40 Pradeep Farfan, RN is Primary Nurse. hj 11:40 Augustine cath inserted, using sterile technique, 16 Fr., by or, balloon inflated, to tr5 gravity drainage, urine specimen collected. 11:41 Inserted saline lock: 22 gauge in right forearm, using aseptic technique. hj 11:50 Lab(s) recollected, by me, sent to lab. iw 12:19 Influenza Screen (a \T\ B) Sent. tr5 12:57 Mendel Powell MD is Hospitalizing Provider. jr8 13:43 oksana feeding tube inserted by JAYLIN Queen. hj 13:44 XRAY Abdomen 1 View (KUB) In Process Unspecified. EDMS 13:44 XRAY Abdomen 1 View (KUB) In Process Unspecified. EDMS 15:06 No provider procedures requiring assistance completed. Patient admitted, IV remains in hj place. intact. Administered Medications: 11:08 Drug: Albuterol - atroVENT (3:1) (2.5 mg - 0.5 mg) 3 ml Route: Nebulizer; hj 12:00 Follow up: Response: No adverse reaction hj 11:20 Drug: Acetaminophen Suppository 650 mg Route: DC; hj 12:30 Follow up: Response: No adverse reaction; Temperature is decreased hj 11:20 Drug: NS 0.9% (30 ml/kg) 30 ml/kg Route: IV; Rate: bolus; Site: right hand; hj 13:00 Follow up: IV Status: Completed infusion; IV Intake: 2200ml hj 11:20 Drug: SOLU-Medrol 125 mg Route: IVP; Site: right hand; hj 12:00 Follow up: Response: No adverse reaction hj 11:36 Drug: Zosyn 3.375 grams Route: IVPB; Infused Over: 60 mins; Site: right hand; hj 12:30 Follow up: IV Status: Completed infusion; IV Intake: 100ml hj 14:01 Drug: Tamiflu 75 mg Route: Feeding Tube; iw 14:28 Drug: NS 0.9% 1000 ml Route: IV; Rate: 75 ml/hr; Site: right hand; hj 14:28 Follow up: IV Status: Infusion continued upon admission hj Intake: 12:30 IV: 100ml; Total: 100ml. hj 13:00 IV: 2200ml; Total: 2300ml. hj Outcome: 12:57 Decision to Hospitalize by Provider. jr8 15:06 Admitted to Med/surg accompanied by tech, family with patient, via stretcher, room 204, hj with oxygen, with chart, Report called to Bem, RN 15:06 Condition: stable 15:06 Instructed on the need for admit, Demonstrated understanding of instructions. 15:07 Patient left the ED. Signatures: Dispatcher [employer] Estefania Sage RN RN iw Roszak, Josh, PA PA jr8 Pradeep Farfan RN RN hj Rodriguez, Tommie, RN RN tr5 Corrections: (The following items were deleted from the chart) 11:12 11:04 BP 137 / 81; Pulse 113bpm; Resp 18bpm; Pulse Ox 97% BiPAP; 77.56 kg; Height 5 ft. iw 10 in.; BMI: 24.5; hj 11:13 11:04 BP 137 / 81; Pulse 113bpm; Resp 18bpm; Pulse Ox 97% BiPAP; Temp 101.2F Rectal; iw 77.56 kg; Height 5 ft. 10 in.; BMI: 24.5; iw 11:42 11:04 BP 137 / 81; Pulse 113bpm; Resp 24bpm; Pulse Ox 97% BiPAP; Temp 101.2F Rectal; hj 77.56 kg; Height 5 ft. 10 in.; BMI: 24.5; iw 11:42 11:41 BP 142 / 89; Pulse 106bpm; Resp 18bpm; Pulse Ox 96% BiPAP; hj hj
--- NOTE | 2018-11-12 12:58 | EDPHYS ---
Physician Documentation [facility] Name: Juan Bender Age: 83 yrs Sex: Male : 1935 Arrival Date: 11/12/2018 Time: 10:58 Bed 3 Private MD: ED Physician Kameron Eason HPI: 11/12 12:50 This 83 yrs old Male presents to ER via EMS with complaints of Respiratory jr8 Distress. 12:50 The patient presents with decreased mental status, decreased responsiveness. Onset: The jr8 symptoms/episode began/occurred acutely, today. Possible causes: sepsis, the patient has had a history of a fever. Associated signs and symptoms: Pertinent positives: shortness of breath. Current symptoms: In the emergency department the patient's symptoms are unchanged from the initial presentation. Patient's baseline: Neuro: alert but confused, Motor: no deficits, Ambulation: unable to walk, uses wheelchair, Speech: normal. It is unknown whether or not the patient has had similar symptoms in the past. The patient has not recently seen a physician. 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 - Social history:: Smoking status: unknown. - Ebola Screening: : Patient negative for fever greater than or equal to 101.5 degrees Fahrenheit, and additional compatible Ebola Virus Disease symptoms Patient denies exposure to infectious person Patient denies travel to an Ebola-affected area in the 21 days before illness onset. ROS: 12:50 Unable to obtain ROS due to altered mental status, obtunded state. jr8 Exam: 12:50 Eyes: Pupils equal round and reactive to light. Lids and lashes normal. Conjunctiva jr8 and sclera are non-icteric and not injected. Cornea within normal limits. Periorbital areas with no swelling, redness, or edema. ENT: Nares patent. No nasal discharge, no septal abnormalities noted. Tympanic membranes are normal and external auditory canals are clear. Oropharynx with no redness, swelling, or masses, exudates, or evidence of obstruction, uvula midline. Mucous membranes dry Neck: Trachea midline, no thyromegaly or masses palpated, and no cervical lymphadenopathy. Supple, full range of motion Cardiovascular: Sinus tachycardia with a normal S1 and S2. No gallops, murmurs, or rubs. Normal PMI, no JVD. No pulse deficits. Respiratory: Patient with retractions and tachypneic upon arrival. Patient upon auscultation has wheezing and rhonchi present Abdomen/GI: Soft with normal bowel sounds. No distension or tympany. No rigidity Skin: Warm, dry with normal turgor. Normal color with no rashes, no lesions, and no evidence of cellulitis. MS/ Extremity: Pulses equal, no cyanosis. Neurovascular intact. Full, normal range of motion. Vital Signs: 11:04 BP 137 / 81; Pulse 113; Resp 24; Temp 101.2(R); Pulse Ox 97% on BiPAP; Weight 77.56 kg; hj Height 5 ft. 10 in. (177.80 cm); 11:41 BP 142 / 89; Pulse 106; Resp 32; Pulse Ox 96% on BiPAP; hj 12:07 BP 131 / 86; Pulse 101; Resp 25; Temp 98.6(A); Pulse Ox 99% on BiPAP; tr5 12:27 BP 118 / 71; Pulse 94; Resp 28; Pulse Ox 96% on BiPAP; hj 12:37 BP 108 / 83; Pulse 91; Resp 24; Pulse Ox 95% on BiPAP; hj 13:24 BP 120 / 81; Pulse 96; Resp 24; Pulse Ox 96% on BiPAP; hj 13:35 BP 102 / 83; Pulse 95; Resp 22; Pulse Ox 94% on BiPAP; hj 13:47 BP 126 / 73; Pulse 96; Resp 22; Pulse Ox 98% on BiPAP; hj 14:26 BP 129 / 78; Pulse 95; Resp 27; Pulse Ox 96% on BiPAP; hj 11:04 Body Mass Index 24.53 (77.56 kg, 177.80 cm) Suzy Coma Score: 12:50 Eye Response: none(1). Verbal Response: none(1). Motor Response: withdraws from jr pain(4). Total: 6. MDM: 10:59 Patient medically screened. [facility] 12:55 Data reviewed: vital signs, nurses notes, lab test result(s), EKG, radiologic studies, jr plain films. Data interpreted: Pulse oximetry: on bipap is 95 %. Interpretation: acceptable. Counseling: I had a detailed discussion with the patient and/or guardian regarding: the historical points, exam findings, and any diagnostic results supporting the discharge/admit diagnosis, lab results, radiology results, the need for further work-up and treatment in the hospital. Physician consultation: A Andre IGLESIAS was called at 12:56, was contacted at 12:56, regarding admission, to the telemetry unit. consult, patient's condition, and will see patient. 11/12 11:01 Order name: ABG; Complete Time: 11:34 [facility] 11/12 11:01 Order name: Basic Metabolic Panel [facility] 11/12 11:01 Order name: Blood Culture Adult (2) [facility] 11/12 11:01 Order name: CBC with Diff [facility] 11/12 11:01 Order name: CPK [facility] 11/12 11:01 Order name: Lactate [facility] 11/12 11:02 Order name: LFT's [facility] 11/12 11:02 Order name: Lipase; Complete Time: 12:28 [facility] 11/12 11:02 Order name: Procalcitonin; Complete Time: 12:28 [facility] 11/12 11:02 Order name: Protime (+inr); Complete Time: 12:09 [facility] 11/12 11:02 Order name: Ptt, Activated; Complete Time: 12:09 [facility] 11/12 11:02 Order name: Troponin (emerg Dept Use Only); Complete Time: 12:28 [facility] 11/12 11:02 Order name: Urine Microscopic Only; Complete Time: 12:43 [facility] 11/12 11:02 Order name: Basic Metabolic Panel; Complete Time: 12:28 [facility] 11/12 11:02 Order name: Chest Single View XRAY; Complete Time: 11:34 [facility] 11/12 11:02 Order name: Blood Culture [facility] 11/12 11:02 Order name: CBC with Automated Diff; Complete Time: 12:09 [facility] 11/12 11:02 Order name: Creatine Phosphokinase; Complete Time: 12:28 [facility] 11/12 11:02 Order name: Lactate; Complete Time: 11:51 [facility] 11/12 11:02 Order name: Liver (Hepatic) Function; Complete Time: 12:28 [facility] 11/12 12:11 Order name: Influenza Screen (a \T\ B); Complete Time: 12:32 [facility] 11/12 12:30 Order name: Urine Dipstick--Ancillary (enter results); Complete Time: 12:43 11/12 12:38 Order name: Urine Culture [facility] 11/12 13:20 Order name: XRAY Abdomen 1 View (KUB); Complete Time: 13:54 [facility] 11/12 13:40 Order name: XRAY Abdomen 1 View (KUB); Complete Time: 13:54 11/12 11:01 Order name: Cath; Complete Time: 11:39 [facility] 11/12 11:02 Order name: Accucheck; Complete Time: 11:39 [facility] 11/12 11:02 Order name: Cardiac monitoring; Complete Time: 11:09 [facility] 11/12 11:02 Order name: EKG - Nurse/Tech; Complete Time: 11:39 [facility] 11/12 11:02 Order name: IV Saline Lock - Large Bore; Complete Time: 11:39 [facility] 11/12 11:02 Order name: Labs collected and sent; Complete Time: 11:38 [facility] 11/12 11:02 Order name: O2 Per Protocol; Complete Time: 11:08 [facility] 11/12 11:02 Order name: O2 Sat Monitoring; Complete Time: 11:08 [facility] 11/12 11:02 Order name: Urine Dipstick-Ancillary (obtain specimen); Complete Time: 11:38 [facility] 11/12 12:42 Order name: Misc. Order: Place -oksana tube ; Complete Time: 13:37 [facility] Administered Medications: 11:08 Drug: Albuterol - atroVENT (3:1) (2.5 mg - 0.5 mg) 3 ml Route: Nebulizer; hj 12:00 Follow up: Response: No adverse reaction hj 11:20 Drug: Acetaminophen Suppository 650 mg Route: OK; hj 12:30 Follow up: Response: No adverse reaction; Temperature is decreased hj 11:20 Drug: NS 0.9% (30 ml/kg) 30 ml/kg Route: IV; Rate: bolus; Site: right hand; hj 13:00 Follow up: IV Status: Completed infusion; IV Intake: 2200ml hj 11:20 Drug: SOLU-Medrol 125 mg Route: IVP; Site: right hand; hj 12:00 Follow up: Response: No adverse reaction hj 11:36 Drug: Zosyn 3.375 grams Route: IVPB; Infused Over: 60 mins; Site: right hand; hj 12:30 Follow up: IV Status: Completed infusion; IV Intake: 100ml hj 14: Drug: Tamiflu 75 mg Route: Feeding Tube; iw 14:28 Drug: NS 0.9% 1000 ml Route: IV; Rate: 75 ml/hr; Site: right hand; hj 14:28 Follow up: IV Status: Infusion continued upon admission hj Disposition: 11/12/18 12:57 Hospitalization ordered by Mendel Powell for Inpatient Admission. Preliminary diagnosis are Influenza due to certain identified influenza viruses, Acute respiratory failure, Altered mental status, unspecified, Dehydration. - Bed requested for Telemetry/MedSurg (Inpatient). - Status is Inpatient Admission. hj - Condition is Fair. - Problem is new. - Symptoms have improved. UTI on Admission? No Addendum: 11/15/2018 09:06 Co-signature as Attending Physician, Kameron Eason MD I agree with the assessment and c gutierrez plan of care. Signatures: Dispatcher [employer] [facility] Yesy Hardy RN RN dw Anderson, Corey, MD MD cha Williams, Irene, RN RN iw Roszak, Josh, PA PA jr8 Pradeep Farfan RN RN Corrections: (The following items were deleted from the chart) 11/12 14:45 12:57 Hospitalization Ordered by Mendel Powell MD for Inpatient Admission. Preliminary dw diagnosis is Influenza due to certain identified influenza viruses; Acute respiratory failure; Altered mental status, unspecified; Dehydration. Bed requested for Telemetry/MedSurg (Inpatient). Status is Inpatient Admission. Condition is Fair. Problem is new. Symptoms have improved. UTI on Admission? No. jr8 14:47 14:45 11/12/2018 12:57 Hospitalization Ordered by A Andre IGLESIAS for Inpatient Admission. dw Preliminary diagnosis is Influenza due to certain identified influenza viruses; Acute respiratory failure; Altered mental status, unspecified; Dehydration. Bed requested for Telemetry/MedSurg (Inpatient). Status is Inpatient Admission. Condition is Fair. Problem is new. Symptoms have improved. UTI on Admission? No. dw 15:07 14:47 11/12/2018 12:57 Hospitalization Ordered by A Andre IGLESIAS for Inpatient Admission. hj Preliminary diagnosis is Influenza due to certain identified influenza viruses; Acute respiratory failure; Altered mental status, unspecified; Dehydration. Bed requested for Telemetry/MedSurg (Inpatient). Status is Inpatient Admission. Condition is Fair. Problem is new. Symptoms have improved. UTI on Admission? No. dw
[2018-11-12] MEDS ORDERED: OSELTAMIVIR 75 MG CAP ONE (13:00)
--- NOTE | 2018-11-12 13:51 | RAD REPORT ---
EXAM DESCRIPTION: RAD - Abdomen 1 View (KUB) - 11/12/2018 1:44 pm CLINICAL HISTORY: oksana placment Pain COMPARISON: Abdomen 1 View (KUB) dated 11/12/2018 FINDINGS: The enteric tube has been removed and repositioned with its tip in the stomach.
--- NOTE | 2018-11-12 13:51 | RAD REPORT ---
EXAM DESCRIPTION: RAD - Abdomen 1 View (KUB) - 11/12/2018 1:44 pm CLINICAL HISTORY: dobhoff placement Pain COMPARISON: Chest Single View dated 10/26/2018; Chest Single View dated 09/22/2018; Chest Single View da ramana 09/01/2018; Chest Single View dated 08/28/2018No comparisons FINDINGS: Tip of the top of tube appears to be in the right lower lobe bronchus.
[2018-11-12] MEDS: NA CHLORIDE 0.9% 1,000 ML IV SCH (15:30)
[2018-11-12] MEDS ORDERED: ONDANSETRON 4 MG/2 ML VIAL IV PRN (15:30)
[2018-11-12] MEDS ORDERED: ACETAMINOPHEN 650MG/RECT SUPP PR PRN (15:30)
[2018-11-12 16:21] VITALS: BMI 24.5
[2018-11-12] MEDS: METHYLPREDNISOLONE 40 MG INJ IV SCH ×2 (18:29→23:36)
[2018-11-12] MEDS: OSELTAMIVIR 75 MG CAP PO SCH (23:36)
[2018-11-13] MEDS: NA CHLORIDE 0.9% 1,000 ML IV SCH ×2 (03:03→04:50)
[2018-11-13] MEDS: METHYLPREDNISOLONE 40 MG INJ IV SCH ×4 (05:03→23:50)
[2018-11-13 06:04] LABS: Absolute Lymphocytes (CBC) 0.5 K/uL (0.7-4.9); Absolute Monocytes 0.1 K/uL (0.1-1.3); Absolute Neutrophil 2.4 K/uL (1.8-8.0); Basophils % 0.2 % (0-1.3); Eosinophils % 0.1 % (0-4.4); Hematocrit 30.3 % (39.6-49.0); Lymphocytes % 16.1 % (15.3-44.8); MPV 8.4 fL (7.6-11.3); Monocytes % 2.8 % (3.3-12.3); RBC Red Blood Cell Count 3.43 M/uL (4.33-5.43)
[2018-11-13 06:07] LABS: BUN Blood Urea Nitrogen 27 mg/dL (7-18); Bicarbonate 24 mmol/L (21-32); Glucose Level 143 mg/dL (74-106); Sodium Level 147 mmol/L (136-145)
[2018-11-13] MEDS: D5 0.45 NS 1,000 ML IV SCH ×2 (09:12→21:47)
[2018-11-13] MEDS: ENOXAPARIN 40 MG/0.4 ML SQ SCH (09:13)
[2018-11-13] MEDS: OSELTAMIVIR 75 MG CAP PO SCH (09:14)
--- NOTE | 2018-11-13 10:09 | EKG ---
Test Date: 2018-11-12 Test Time: 11:14:41 Visual Merchandising Specialist: VLAD MEASUREMENT RESULTS: Intervals: Rate: 112 WY: 128 QRSD: 158 QT: 364 QTc: 496 [employer]: P: WY: 128 QRS: -22 T: 41 INTERPRETIVE STATEMENTS: Sinus tachycardia Nonspecific intraventricular block Abnormal ECG Compared to ECG 10/31/2018 23:16:36 Sinus rhythm no longer present Ventricular premature complex(es) no longer present Left-axis deviation no longer present Intraventricular conduction delay no longer present Electronically Signed On 11-13-18 10:05:58 CDT by Nathaniel Berger
[2018-11-13] MEDS ORDERED: JEVITY 1.5 CAL LIQUID 1,000 ML BOT FT SCH (11:00)
--- NOTE | 2018-11-13 21:37 | HP ---
Date of Admission: 11/13/2018 Chief Complaint: Fever, altered mental status, shortness of breath. History Of Present Illness: This is an 83-year-old male patient who was in hospital recently from 11/01/2018 to 11/04/2018 and during his last hospital admission, he was treated for volume depletion, acute kidney injury, urinary tract infection, and metabolic encephalopathy. He was released to go to retirement on 11/04/2018 with Cipro for 1 week and instruction to discontinue furosemide and potassium replacement therapy. The patient has significant advanced senile dementia. His oral intake of food and water is very minimum and his condition at retirement, has been progressively declining, so I did talk to the patient's during last hospital admission and recommended hospice care for patient. The patient's was agreeable so after he was discharged to go to retirement, she talked to hospice agency and thought the patient sign up for hospice care. Yesterday, he was brought into emergency room with change in his condition. Hospice nurse contacted patient's yesterday morning and advised her to come to the retirement as soon as possible because his condition had deteriorated. When went there, she did not like the way the patient was looking. He was having fever that probably started night before last and he had altered mental status along with shortness of breath, so decided to revoke hospice and requested the patient to be brought to the emergency room. After he was evaluated in the ER, he was diagnosed as having influenza B positive. All the tests done in emergency room reviewed including chest x-ray result and I am concerned about that he may have some viral pneumonia as a result of this influenza type B. The patient was having difficulty breathing in the emergency room and BiPAP was applied and he responded well to BiPAP therapy. The patient was at hospital. Dobhoff tube was placed in the emergency room as the patient was not able to swallow any medications by mouth because of his significantly altered mental status. His was present at bedside. Medications: List reviewed. Advanced Directives: Do not resuscitate as per my discussion with the patient' s and we will write such order in the chart. Review of Systems: Constitutional: As mentioned above. SOFTWARE INSTALLER: As mentioned above. All other systems reviewed and negative. Allergies: HYDROCODONE, DEMEROL, MORPHINE, CEFOTAXIME. Past Medical History: Significant for advanced senile dementia, diverticulosis , coronary artery disease, anemia, generalized weakness, debility, osteoarthritis at multiple sites, prostate cancer, endocarditis, urinary tract infection. Past Surgical History: Not pertinent. Family History: Not pertinent. Social History: Negative for smoking and alcohol use. Physical Examination: Vital signs: When he first came into emergency room temperature was 101.2, pulse 113, respiratory rate 24, and it was as high as 32 per minute in the emergency room. Oxygen saturation 97% on 40% FiO2. Last vital signs this morning temperature 97.4, pulse 73, respiratory rate 18, blood pressure 135/78, oxygen saturation 100% on BiPAP with 35% FiO2. General: The patient is lying in bed, not in any distress on BiPAP, does not answer any questions. Not using accessory muscles of respiration. HEENT: Head atraumatic, normocephalic. Conjunctivae nonerythematous. Sclerae white. Mouth, no thrush or edema noted. Ears/Nose, no mass, lesion, discharge noted. Neck: Supple. No JVD, lymph nodes, bruit, thyromegaly noted. Lungs: Bilateral good equal air entry. Clear to auscultation. No rhonchi. No rales. Heart: Normal heart sounds, no murmur or gallop. Abdomen: Soft, bowel sounds normal. No guarding, rigidity, tenderness, mass, hepatosplenomegaly, distention, or bruit noted. Extremities: No leg edema. No calf tenderness. Skin: No rash, ulcer, cellulitis. Lymphatics: No lymph node enlargement in neck, supraclavicular, infraclavicular region. SOFTWARE INSTALLER: Unable to examine in detail as the patient has significantly altered mental status on top of his underlying advanced dementia. Chest: Unremarkable. External Genitalia: Deferred. Rectal: Deferred. Laboratory Data: Yesterday, white count 6.1, hemoglobin 10.3, platelets 298. This morning white count 3, hemoglobin 9.6, platelets 237. Yesterday, blood gas done in emergency room, pH 7.36, pCO2 50, PO2 132, and oxygen saturation 97.8% on 40% FiO2. Yesterday, sodium 146, potassium 4.7, chloride 115, bicarb 26, BUN 25, creatinine 0.79, glucose 119. Liver function tests unremarkable. Lactic acid level 1.2, procalcitonin 0.18, and first troponin 0.25. Second troponin 0.20, third troponin 0.19, lipase 52. This morning sodium 147, potassium 4, chloride 118, bicarb 24, BUN 27, creatinine 0.59, glucose 140. Urinalysis negative except 1+ protein. Influenza A test negative. Influenza B test positive. Chest x-ray shows reticular opacity bilaterally. Impression: 1. Pneumonia, due to influenza type B. 2. Volume depletion. 3. Anemia, chronic, unspecified. 4. Leukocytopenia, due to viral infection. 5. Acute respiratory failure with CO2 retention, due to viral pneumonia. 6. Advanced senile dementia. 7. Coronary artery disease. 8. Diverticulosis. 9. Osteoarthritis, multiple sites. 10. Prostate cancer. Plan: Admit the patient to hospital for further evaluation and management of this problem. The patient is appropriate for inpatient and is expected to spend 2 midnights in hospital. We will continue retirement medications per order. All oral medications will be given through Dobhoff tube, which was placed in the emergency room. We will start feeding through the Dobhoff using Jevity and feeding order was placed. We will increase the rate as he tolerates. Check for residual. DVT prophylaxis will be given using Lovenox. Overall, prognosis is guarded. Tamiflu will be given per order through Dobhoff tube. We will give IV fluid and water through Dobhoff tube for volume depletion problem. We will repeat blood work tomorrow. Continue current BiPAP therapy for respiratory failure problem. Advanced directives discussed with and DNR order will be written in the chart. I will see him tomorrow for followup. was told that during the time she is not in the room to let nursing staff know, so that way they can apply restraints on hands in order for us to prevent the patient from pulling out his IV and Dobhoff tube. For therapy purpose, restrain is necessary. TROY/MODL Voice ID: [id number] MTDD
[2018-11-13] MEDS: OSELTAMIVIR 75 MG CAP FT SCH (21:45)
[2018-11-13] MEDS: FAMOTIDINE 20 MG TAB FT SCH (21:45)
[2018-11-13] MEDS: DIVALPROEX NA 125 MG CAP FT SCH (21:46)
[2018-11-14] MEDS: D5 0.45 NS 1,000 ML IV SCH ×2 (05:00→12:52)
[2018-11-14 06:15] LABS: BUN Blood Urea Nitrogen 31 mg/dL (7-18); Bicarbonate 26 mmol/L (21-32); Glucose Level 156 mg/dL (74-106); Magnesium 2.4 mg/dL (1.8-2.4); Potassium 3.9 mmol/L (3.5-5.1); Sodium Level 147 mmol/L (136-145)
[2018-11-14] MEDS: METHYLPREDNISOLONE 40 MG INJ IV SCH ×3 (06:16→17:56)
[2018-11-14] MEDS: FAMOTIDINE 20 MG TAB FT SCH ×2 (09:56→20:48)
[2018-11-14] MEDS: ASPIRIN 81 MG CHEWABLE TABLET FT SCH (09:56)
[2018-11-14] MEDS: THIAMINE HCL 100 MG TABLET FT SCH (09:56)
[2018-11-14] MEDS: OSELTAMIVIR 75 MG CAP FT SCH ×2 (09:56→20:48)
[2018-11-14] MEDS: LOSARTAN POTASSIUM 50 MG TABLET FT SCH (09:57)
[2018-11-14] MEDS: ENOXAPARIN 40 MG/0.4 ML SQ SCH (09:57)
[2018-11-14] MEDS: FOLIC ACID 1 MG TABLET FT SCH (09:57)
--- NOTE | 2018-11-14 10:02 | PN ---
Date of Progress Note: 11/14/2018 Subjective: The patient was seen this morning for followup. He was lying in bed, on BiPAP. wa s not present with him. When I started talking to him, he woke up with his eyes open, but did not an swer any questions. This is definitely improvement compared to yesterday. He was not using any acce ssory muscles of respiration. Objective: Vital Signs: Reviewed. HEENT: Unremarkable, presence of Dobhoff tube in the nose, and presence of BiPAP mask over nose, and he is getting tube feeding at 40 cc/hour. Lungs: Clear to auscultation. No rhonchi. No rales. Heart: Heart sounds normal, presence of systolic murmur unchanged. Abdomen: Soft. Bowel sounds normal. No guarding, rigidity, tenderness, or distention. Extremities: No leg edema. Laboratory Data: Sodium 147, potassium 3.9, chloride 118, bicarb 26, BUN 31, creatinine 0.61, glucos e 156. Impression: 1.Pneumonia, due to influenza type B virus. 2.Acute respiratory failure with CO2 retention secondary to above, improved. 3.Volume depletion. 4.Senile dementia. Plan: We will go ahead and continue current tube feeding, but we will try to discontinue BiPAP this morning and place him on nasal cannula oxygen, and I did discuss with the respiratory therapist and dulce maria campos this morning. We will see how he does with nasal cannula oxygen and continue to monitor him for any respiratory distress. Continue tube feeding, and at appropriate time, we will decide if we can remove tube feeding and start him on diet. Continue Tamiflu and IV fluid per order. TROY/MODL Voice ID: [id number] Report ID: [id number]
[2018-11-14] MEDS: FLUOXETINE 20 MG CAP FT SCH (20:48)
[2018-11-14] MEDS: DIVALPROEX NA 125 MG CAP FT SCH (20:48)
[2018-11-15] MEDS: METHYLPREDNISOLONE 40 MG INJ IV SCH ×4 (00:46→18:12)
[2018-11-15] MEDS: D5 0.45 NS 1,000 ML IV SCH ×3 (00:46→21:03)
[2018-11-15 07:48] LABS: Absolute Lymphocytes (CBC) 0.4 K/uL (0.7-4.9); Absolute Monocytes 0.1 K/uL (0.1-1.3); Absolute Neutrophil 3.6 K/uL (1.8-8.0); Basophils % 0.2 % (0-1.3); Eosinophils % 0.1 % (0-4.4); Hematocrit 27.7 % (39.6-49.0); Monocytes % 2.2 % (3.3-12.3); RBC Red Blood Cell Count 3.13 M/uL (4.33-5.43)
[2018-11-15 07:54] LABS: BUN Blood Urea Nitrogen 27 mg/dL (7-18); Bicarbonate 28 mmol/L (21-32); Glucose Level 121 mg/dL (74-106); Magnesium 2.3 mg/dL (1.8-2.4); Sodium Level 146 mmol/L (136-145)
[2018-11-15 08:34] LABS: Blood Morphology Comment NOT SEEN (NOT SEEN); Platelet Estimate ADEQ; Urine White Blood Cell Casts OK
[2018-11-15] MEDS: ENOXAPARIN 40 MG/0.4 ML SQ SCH (08:34)
--- NOTE | 2018-11-15 08:34 | RAD REPORT ---
EXAM DESCRIPTION: RAD - Chest Single View - 11/15/2018 8:10 am CLINICAL HISTORY: Viral pneumonia COMPARISON: November 12 TECHNIQUE: AP portable chest image was obtained 0809 hours . FINDINGS: No focal consolidation or mass lesions seen. Diffusely prominent interstitial pattern is p resent not substantially different from comparison. Feeding tube has been removed. No pneumothorax or pleural fluid collection on the right. Cardiac silhouette is mildly enlarged without vascular engorgement. Trachea is midline. No measurabl e pleural effusion. No acute bony abnormality seen. No acute aortic findings suspected. IMPRESSION: Extensive interstitial lung disease is present likely a combination of infiltrate and fi brosis. No focal consolidation to suspect bacterial pneumonia. Feeding tube has been removed. No pneumothorax or pleural fluid collection.
[2018-11-15] MEDS: OSELTAMIVIR 75 MG CAP FT SCH ×2 (08:35→21:01)
[2018-11-15] MEDS: FAMOTIDINE 20 MG TAB FT SCH ×2 (08:35→21:01)
[2018-11-15] MEDS: FOLIC ACID 1 MG TABLET FT SCH (08:35)
[2018-11-15] MEDS: SCOPOLAMINE HYDROBROMIDE PATCH TD SCH (08:35)
[2018-11-15] MEDS: THIAMINE HCL 100 MG TABLET FT SCH (08:35)
[2018-11-15] MEDS: FLUOXETINE 20 MG CAP FT SCH ×2 (08:35→21:02)
[2018-11-15] MEDS: ASPIRIN 81 MG CHEWABLE TABLET FT SCH (08:35)
[2018-11-15] MEDS: LOSARTAN POTASSIUM 50 MG TABLET FT SCH (08:36)
[2018-11-15] MEDS: DIVALPROEX NA 125 MG CAP FT SCH (21:02)
[2018-11-16] MEDS: METHYLPREDNISOLONE 40 MG INJ IV SCH ×3 (00:24→12:22)
--- NOTE | 2018-11-16 00:38 | PN ---
Date of Progress Note: 11/15/2018 Subjective: The patient was seen this morning for followup. He was lying in bed, not in distress, o n nasal cannula oxygen. Family member was not present in room with him this morning. Objective: Vital Signs: Reviewed. HEENT: Unremarkable. Lungs: Clear to auscultation. Heart: Sounds normal. Abdomen: Soft. Bowel sounds normal. No guarding, rigidity, tenderness, distention. Extremities: No leg edema. Laboratory Data: Labs and chest x-ray done today, results reviewed. Impression: 1.Viral pneumonia, due to influenza type B. 2.Volume depletion. 3.Senile dementia. Plan: We will continue current medication, IV fluid. Today's chest x-ray and blood work results rev iewed. We will see him tomorrow for followup, possible discharge to go back to [facility] tomorrow . Long-term prognosis is poor. TROY/MODL Voice ID: [id number] Report ID: [id number]
[2018-11-16] MEDS: D5 0.45 NS 1,000 ML IV SCH (06:54)
[2018-11-16] MEDS: ASPIRIN 81 MG CHEWABLE TABLET FT SCH (09:59)
[2018-11-16] MEDS: ENOXAPARIN 40 MG/0.4 ML SQ SCH (09:59)
[2018-11-16] MEDS: THIAMINE HCL 100 MG TABLET FT SCH (09:59)
[2018-11-16] MEDS: FAMOTIDINE 20 MG TAB FT SCH ×2 (09:59→20:27)
[2018-11-16] MEDS: LOSARTAN POTASSIUM 50 MG TABLET FT SCH (09:59)
[2018-11-16] MEDS: OSELTAMIVIR 75 MG CAP FT SCH ×2 (09:59→20:26)
[2018-11-16] MEDS: FOLIC ACID 1 MG TABLET FT SCH (09:59)
[2018-11-16] MEDS: FLUOXETINE 20 MG CAP FT SCH ×2 (10:00→20:27)
[2018-11-16] MEDS: ALBUTEROL 2.5 MG/3 ML NEB SOL NEB PRN ×2 (10:25→16:28)
[2018-11-16] MEDS: IPRATROPIUM BROM 0.5MG/2.5ML NEB PRN ×2 (10:25→16:28)
[2018-11-16] MEDS ORDERED: FUROSEMIDE 20 MG/ 2ML VIAL IV ONE ×2 (11:55→13:47)
[2018-11-16 12:39] LABS: Absolute Lymphocytes (CBC) 0.4 K/uL (0.7-4.9); Absolute Monocytes 0.1 K/uL (0.1-1.3); Absolute Neutrophil 3.5 K/uL (1.8-8.0); Basophils % 0.1 % (0-1.3); Hematocrit 30.2 % (39.6-49.0); Lymphocytes % 10.2 % (15.3-44.8); MPV 8.2 fL (7.6-11.3); Monocytes % 2.9 % (3.3-12.3); RBC Red Blood Cell Count 3.38 M/uL (4.33-5.43)
[2018-11-16 12:50] LABS: ALT/SGPT 33 U/L (12-78); AST/SGOT 22 U/L (15-37); Alkaline Phosphatase 73 U/L (45-117); BUN Blood Urea Nitrogen 23 mg/dL (7-18); Bicarbonate 29 mmol/L (21-32); Bilirubin Total 0.3 mg/dL (0.2-1.0); Glucose Level 128 mg/dL (74-106); Magnesium 2.4 mg/dL (1.8-2.4); NT PRO-BNP 8093 pg/mL (<450); Potassium 3.9 mmol/L (3.5-5.1); Protein, Total 5.8 g/dL (6.4-8.2); Sodium Level 144 mmol/L (136-145)
--- NOTE | 2018-11-16 13:03 | RAD REPORT ---
EXAM DESCRIPTION: RAD - Chest Single View - 11/16/2018 12:58 pm CLINICAL HISTORY: dyspnea Chest pain. COMPARISON: Chest Single View dated 11/15/2018; Abdomen 1 View (KUB) dated 11/12/2018; Abdomen 1 View (KUB) dated 11/12/2018; Chest Single View dated 11/12/2018 FINDINGS: Portable technique limits examination quality. Mild interstitial prominence is present, unchanged. This may represent mild fibrosis or interstitial pulmonary edema. The heart is moderately enlarged in size. No displaced fractures.Sternotomy wires ar e present. IMPRESSION: Stable chest since 11/15/2018. Mild CHF is possible.
[2018-11-16 13:33] LABS: Platelet Estimate ADEQ
[2018-11-16 13:34] LABS: Anisocytosis 1+; Blood Morphology Comment NOTED (NOT SEEN); Macrocytosis SLIGHT; Polychromasia SLIGHT
[2018-11-16] MEDS: DIVALPROEX NA 125 MG CAP FT SCH (20:27)
[2018-11-17] MEDS ORDERED: AMPICILLIN/SULBACT 1.5GM VIAL IVPB SCH (09:00)
[2018-11-17] MEDS: FUROSEMIDE 40 MG/4 ML VIAL IV SCH (11:31)
[2018-11-17] MEDS: ASPIRIN 81 MG CHEWABLE TABLET FT SCH (11:32)
[2018-11-17] MEDS: FLUOXETINE 20 MG CAP FT SCH ×2 (11:32→20:25)
[2018-11-17] MEDS: FAMOTIDINE 20 MG TAB FT SCH ×2 (11:32→20:25)
[2018-11-17] MEDS: LOSARTAN POTASSIUM 50 MG TABLET FT SCH (11:32)
[2018-11-17] MEDS: FOLIC ACID 1 MG TABLET FT SCH (11:32)
[2018-11-17] MEDS: THIAMINE HCL 100 MG TABLET FT SCH (11:32)
[2018-11-17] MEDS: ENOXAPARIN 40 MG/0.4 ML SQ SCH (11:33)
[2018-11-17] MEDS: AMPICILLIN/SULBACT 1.5 GM in NA CHLORIDE 0.9% 100 ML IVPB SCH ×2 (11:33→17:04)
[2018-11-17] MEDS: DIVALPROEX NA 125 MG CAP FT SCH (20:25)
[2018-11-18] MEDS: AMPICILLIN/SULBACT 1.5 GM in NA CHLORIDE 0.9% 100 ML IVPB SCH ×3 (00:26→16:46)
--- NOTE | 2018-11-18 02:09 | PN ---
Date of Progress Note: 11/16/2018 Subjective: The patient was seen this morning for followup. He was lying in bed, not in distress. No complaints reported. There was family member at bedside. Objective: Vital Signs: Reviewed. HEENT: Unremarkable. Lungs: Clear to auscultation. Heart: Sounds normal. Abdomen: Soft. Bowel sounds normal. No guarding, rigidity, tenderness, distention. Extremities: No leg edema. Impression: 1.Congestive heart failure, diastolic, acute. 2.Influenza, type B, with viral pneumonia. 3.Senile dementia. Plan: After I saw the patient, decision was made to discharge him to go home as his condition was st able, but then while he was in the hospital waiting for discharge, his condition deteriorated, starte d to have shortness of breath again, and he was placed back on BiPAP and nurse contacted me, informed me with that change in condition, so we have canceled the discharge planning on him, and repeat bloo d work, chest x-ray was done, and I am concerned about him having acute diastolic congestive heart fa ilure, so I have discontinued his IV fluid and gave him Lasix total 40 mg today. We will continue Bi PAP therapy, and I will see him tomorrow for followup. TROY/MODL Voice ID: [id number] Report ID: [id number]
--- NOTE | 2018-11-18 03:15 | PN ---
Date of Progress Note: 11/17/2018 Subjective: The patient was seen this morning for followup. No new complaints or problems reported by nursing staff. was present with him at bedside. This morning when I saw him, he was back on nasal cannula oxygen. Yesterday afternoon, his condition deteriorated with worsening of the shortne ss of breath problem. I suspect that his changing condition was due to acute diastolic CHF problem. We gave him Lasix total 40 mg yesterday and we will continue Lasix IV as of today. He has some ches t congestion and cough, not able to cough up any mucus. Objective: Vital Signs: Reviewed. HEENT: Unremarkable. Lungs: Clear to auscultation. Bilateral rales noted in lower lung rose. Not using accessory musc les of respiration. Heart: Sounds normal. Abdomen: Soft, bowel sounds normal. No guarding, rigidity, tenderness, or distention. Extremities: No leg edema. Impression: 1.Diastolic congestive heart failure, acute. 2.Pneumonia. 3.Senile dementia. Plan: Start the patient on IV Lasix 40 mg daily, IV antibiotic which is Unasyn. Continue the curren t medications and we will plan for discharge to go to [facility] once his condition is stable over the next few days. TROY/MODL Voice ID: [id number] Report ID: [id number]
[2018-11-18 06:13] LABS: Absolute Lymphocytes (CBC) 0.9 K/uL (0.7-4.9); Absolute Monocytes 0.6 K/uL (0.1-1.3); Absolute Neutrophil 4.8 K/uL (1.8-8.0); Basophils % 0.1 % (0-1.3); Eosinophils % 2.2 % (0-4.4); Hematocrit 34.5 % (39.6-49.0); Lymphocytes % 13.8 % (15.3-44.8); MPV 8.3 fL (7.6-11.3); Monocytes % 9.2 % (3.3-12.3); RBC Red Blood Cell Count 3.92 M/uL (4.33-5.43)
[2018-11-18 06:22] LABS: BUN Blood Urea Nitrogen 21 mg/dL (7-18); Bicarbonate 34 mmol/L (21-32); Glucose Level 71 mg/dL (74-106); Magnesium 2.2 mg/dL (1.8-2.4); Potassium 3.4 mmol/L (3.5-5.1); Sodium Level 145 mmol/L (136-145)
[2018-11-18] MEDS: ENOXAPARIN 40 MG/0.4 ML SQ SCH (09:19)
[2018-11-18] MEDS: FAMOTIDINE 20 MG TAB FT SCH ×2 (09:19→20:17)
[2018-11-18] MEDS: FLUOXETINE 20 MG CAP FT SCH ×2 (09:19→20:16)
[2018-11-18] MEDS: ASPIRIN 81 MG CHEWABLE TABLET FT SCH (09:19)
[2018-11-18] MEDS: THIAMINE HCL 100 MG TABLET FT SCH (09:19)
[2018-11-18] MEDS: LOSARTAN POTASSIUM 50 MG TABLET FT SCH (09:19)
[2018-11-18] MEDS: FOLIC ACID 1 MG TABLET FT SCH (09:19)
[2018-11-18] MEDS: FUROSEMIDE 40 MG/4 ML VIAL IV SCH (09:20)
[2018-11-18] MEDS: SCOPOLAMINE HYDROBROMIDE PATCH TD SCH (09:20)
[2018-11-18] MEDS ORDERED: POTASSIUM CL SA 10 MEQ TAB PO ONE (10:44)
[2018-11-18] MEDS ORDERED: ENSURE ENLIVE 237 ML CAN PO PRN (12:11)
--- NOTE | 2018-11-18 12:34 | RAD REPORT ---
EXAM DESCRIPTION: RAD - Chest Single View - 11/18/2018 11:28 am CLINICAL HISTORY: CHF, pneumonia Chest pain. COMPARISON: Chest Single View dated 11/16/2018; Chest Single View dated 11/15/2018; Abdomen 1 View ([facility] B) dated 11/12/2018; Abdomen 1 View (KUB) dated 11/12/2018 FINDINGS: Portable technique limits examination quality. The lungs are grossly clear. The heart is moderately enlarged with sternotomy wires present. No displ aced fractures. IMPRESSION: Clear lungs.
--- NOTE | 2018-11-18 13:56 | ECHO ---
HEIGHT: 5 ft 10 in WEIGHT: 171 lb 0 oz DATE OF STUDY: 11/17/[address]: Sony Powell MD 2-DIMENSIONAL: YES M.MODE: YES DOPPLER: YES COLOR FLOW: YES TDS: NO PORTABLE: NO DEFINITY: NO BUBBLE STUDY: NO DIAGNOSIS: CONGESTIVE HEART FAILURE CARDIAC HISTORY: CATHERIZATION: YES SURGERY: YES PROSTHETIC VALVE: AORTIC VALVE REPLACEMENT PACEMAKER: NO MEASUREMENTS (cm) DIASTOLIC (NORMALS) SYSTOLIC (NORMALS) IVSd 1.4 (0.6-1.2) LA Diam (1.9-4.0) LVEF 32% LVIDd 6.9 (3.5-5.7) LVIDs 5.8 (2.0-3.5) %FS 16% LVPWd 1.2 (0.6-1.2) Ao Diam 3.8 (2.0-3.7) 2 DIMENSIONAL ASSESSMENT: RIGHT ATRIUM: NORMAL LEFT ATRIUM: DILATED RIGHT VENTRICLE: NORMAL LEFT VENTRICLE: DILATED, LEFT VENTRICULAR HYPERTROPHY TRICUSPID VALVE: NORMAL MITRAL VALVE: MITRAL ANNULAR CALCIFICATION PULMONIC VALVE: NORMAL AORTIC VALVE: STATUS POST AORTIC VALVE REPLACEMENT PERICARDIAL EFFUSION: NONE AORTIC ROOT: NORMAL LEFT VENTRICULAR WALL MOTION: SEVERE GLOBAL HYPOKINESIS. DOPPLER/COLOR FLOW: MILD MITRAL REGURGITATION, AORTIC REGURGITATION, AND TRICUSPID REGURGITATION. RIGHT VENTRICULAR SYSTOLIC PRESSURE 40 MMHG. COMMENTS: SEVERE GLOBAL HYPOKINESIS- EJECTION FRACTION 30-35%. STATUS POST AORTIC VALVE REPLACEMENT- NORMAL FUNCTION. LEFT VENTRICULAR DILATATION, LEFT ATRIAL ENLARGEMENT, LEFT VENTRICULAR HYPERTROPHY. MILD AORTIC REGURGITATION, MITRAL REGURGITATION, AND TRICUSPID REGURGIATION. MILD PULMONARY HYPERTENSION- RIGHT VENTRICULAR SYSTOLIC PRESSURE 40 MMHG. TECHNOLOGIST: JIMBO MARKS [facility]
--- NOTE | 2018-11-18 17:18 | PN ---
Date of Progress Note: 11/18/2018 Subjective: The patient was lying in bed and not in distress. Objective: Vital signs: Reviewed. His was not present with him at bedside when I saw him this morning. HEENT: Examination unremarkable. Lungs: Clear to auscultation except basal rales, much better today than yesterday. Not using accessory muscles of respiration. Heart: Sounds normal. Abdomen: Soft. Bowel sounds normal. No guarding, rigidity, tenderness, or distention. Extremities: No leg edema. Impression: 1. Congestive heart failure, acute, diastolic. 2. Pneumonia. 3. Senile dementia. Plan: We will continue current Lasix and antibiotics. We will get an echo with Doppler today. Blood work results reviewed and I will see him tomorrow for followup. We will get a chest x-ray done as well. TROY/MODBurton Voice ID: [id number] Report ID: [id number] MTDD
[2018-11-18] MEDS: DIVALPROEX NA 125 MG CAP FT SCH (20:16)
[2018-11-19] MEDS: AMPICILLIN/SULBACT 1.5 GM in NA CHLORIDE 0.9% 100 ML IVPB SCH ×3 (00:56→16:00)
[2018-11-19 09:40] LABS: BUN Blood Urea Nitrogen 20 mg/dL (7-18); Bicarbonate 35 mmol/L (21-32); Glucose Level 86 mg/dL (74-106); Magnesium 2.2 mg/dL (1.8-2.4); Potassium 3.5 mmol/L (3.5-5.1); Sodium Level 145 mmol/L (136-145)
[2018-11-19] MEDS: THIAMINE HCL 100 MG TABLET FT SCH (09:48)
[2018-11-19] MEDS: POTASSIUM CL SA 10 MEQ TAB PO SCH (09:48)
[2018-11-19] MEDS: FAMOTIDINE 20 MG TAB FT SCH ×2 (09:48→20:10)
[2018-11-19] MEDS: FUROSEMIDE 40 MG/4 ML VIAL IV SCH (09:49)
[2018-11-19] MEDS: ASPIRIN 81 MG CHEWABLE TABLET FT SCH (09:49)
[2018-11-19] MEDS: FLUOXETINE 20 MG CAP FT SCH ×2 (09:49→20:10)
[2018-11-19] MEDS: ENOXAPARIN 40 MG/0.4 ML SQ SCH (09:49)
[2018-11-19] MEDS: FOLIC ACID 1 MG TABLET FT SCH (09:50)
[2018-11-19] MEDS: LOSARTAN POTASSIUM 50 MG TABLET FT SCH (09:50)
[2018-11-19] MEDS ORDERED: POTASSIUM CL SA 10 MEQ TAB PO ONE (10:32)
--- NOTE | 2018-11-19 13:16 | PN ---
Date of Progress Note: 11/19/2018 Subjective: The patient was seen this morning for followup. He was lying in bed, not in distress. was present with him at bedside. Objective: Vital Signs: Reviewed. HEENT: Unremarkable. Lungs: Clear to auscultation. No rhonchi. No rales. Heart: Sounds normal. Abdomen: Soft. Bowel sounds normal. No guarding, rigidity, tenderness, distention. Extremities: No leg edema. Laboratory Data: Yesterday's chest x-ray shows no acute changes. No pneumonia and echocardiogram fr om yesterday shows ejection fraction of 32%. Impression: 1.Congestive heart failure, chronic, systolic, with acute exacerbation. 2.Pneumonia. 3.Senile dementia. 4.Hypokalemia. Plan: We will go ahead and follow up on blood work results from today. The patient will be on potas sium replacement protocol. Yesterday potassium was low and he was started on potassium replacement. We will continue current Lasix as well as IV antibiotic Unasyn. Chest x-ray had shown resolution of changes noted on prior chest x-rays. Details about x-ray finding as well as echocardiogram result d iscussed with the patient's . Overall, prognosis is very poor. His appetite is extremely poor, but this is nothing new. This has been going on for several months. I did talk to the patient's wif e regarding long-term prognosis, which is very poor. The patient was just recently placed on hospice care, but decided to revoke hospice and brought him into the emergency room when he got sick th is time, and I did explain it to patient's that upon discharge from the hospital, it is appropri ate for patient to get back on hospice care, but unfortunately she will not be able to keep on [facility] hospice to bring him back to hospital every time he gets sick, and she understands that. She aske d me if there is anything that can be done about his appetite, only other option is feeding tube and it can be viewed as life prolonging measures or comfort measures and that changes from patient to pat ient and family to family per their own personal decision, so she will think about that and she will communicate with her children, and we will discuss more tomorrow. Possible discharge to go to [facility] tomorrow. TROY/MODL Voice ID: [id number] Report ID: [id number]
[2018-11-19] MEDS: DIVALPROEX NA 125 MG CAP FT SCH (20:10)
[2018-11-20] MEDS: AMPICILLIN/SULBACT 1.5 GM in NA CHLORIDE 0.9% 100 ML IVPB SCH ×3 (00:35→16:33)
[2018-11-20] MEDS: FUROSEMIDE 40 MG/4 ML VIAL IV SCH (09:30)
[2018-11-20] MEDS: ENOXAPARIN 40 MG/0.4 ML SQ SCH (09:30)
[2018-11-20] MEDS: ASPIRIN 81 MG CHEWABLE TABLET FT SCH (09:31)
[2018-11-20] MEDS: FOLIC ACID 1 MG TABLET FT SCH (09:31)
[2018-11-20] MEDS: FAMOTIDINE 20 MG TAB FT SCH ×2 (09:31→21:56)
[2018-11-20] MEDS: LOSARTAN POTASSIUM 50 MG TABLET FT SCH (09:31)
[2018-11-20] MEDS: THIAMINE HCL 100 MG TABLET FT SCH (09:31)
[2018-11-20] MEDS: POTASSIUM CL SA 10 MEQ TAB PO SCH (09:31)
[2018-11-20] MEDS: FLUOXETINE 20 MG CAP FT SCH ×2 (09:31→21:56)
[2018-11-20] MEDS: ALBUTEROL 2.5 MG/3 ML NEB SOL NEB PRN (13:18)
[2018-11-20] MEDS: IPRATROPIUM BROM 0.5MG/2.5ML NEB PRN (13:18)
--- NOTE | 2018-11-20 13:51 | RAD REPORT ---
EXAM DESCRIPTION: Yue Single View11/20/2018 1:06 pm CLINICAL HISTORY: Shortness of breath COMPARISON: November 18 FINDINGS: Bilateral interstitial lung opacities. The heart is mildly to moderately enlarged Postsurgical changes involve the chest IMPRESSION: Bilateral interstitial lung opacities may represent mild interstitial pulmonary edema lopez perimposed over chronic changes
[2018-11-20 13:56] LABS: BUN Blood Urea Nitrogen 17 mg/dL (7-18); Bicarbonate 30 mmol/L (21-32); Glucose Level 93 mg/dL (74-106); Potassium 3.8 mmol/L (3.5-5.1); Sodium Level 145 mmol/L (136-145)
[2018-11-20] MEDS ORDERED: POTASSIUM CL SA 10 MEQ TAB PO ONE ×2 (16:00)
[2018-11-20] MEDS ORDERED: FUROSEMIDE 40 MG/4 ML VIAL IV ONE (17:00)
--- NOTE | 2018-11-20 20:14 | PN ---
Date of Progress Note: 11/20/2018 Subjective: The patient was seen this morning for followup. The patient's was at bedside repor ting that when she came in, she noted that the patient was having more gurgling type of noise with br eathing and sounded congested in his chest. Objective: Vital Signs: Reviewed. General: When I saw him, he was lying in bed, not using any accessory muscles of respiration. HEENT: Unremarkable. Lungs: Bilateral good equal air entry. Presence of some scattered rales in lower lung field. Heart: Sounds normal. Abdomen: Soft. Bowel sounds normal. No guarding, rigidity, tenderness, or distention. Extremities: No leg edema. Laboratory Data: Yesterday's blood work results reviewed. Impression: 1.Congestive heart failure, chronic, systolic, with acute exacerbation. 2.Pneumonia. 3.Senile dementia. Plan: We will go ahead and continue current medications including current antibiotic and Lasix. We will repeat chest x-ray today. The patient is at high risk from aspiration pneumonia with his overal l condition and I did talk to the patient's today about that, that the patient can be fine. An hour later, his condition may change completely. She understands that. We also talked about feeding tube that we had discussed yesterday and the patient's reported that she did talk to her childr en and they are in favor of not to place any feeding tube and had hard time making decision, but after talking to me yesterday and today, she tells me that she does not want to put any feeding tube . She was told that in case if she makes a different decision down the line, then she will need to h e senior living help her and make arrangements to see one of the local caustic room operator for outpat ient feeding tube placement. The patient's overall prognosis is poor and was told that placing feeding tube will not change the quality of life, which unfortunately is very poor for him and she un derstands and realizes. We will plan to discharge him to go to senior living tomorrow. Meanwhile, we will continue current medications as outlined. We will follow up on chest x-ray. TROY/MODL Voice ID: [id number] Report ID: [id number]
[2018-11-20] MEDS: DIVALPROEX NA 125 MG CAP FT SCH (21:57)
[2018-11-21] MEDS: AMPICILLIN/SULBACT 1.5 GM in NA CHLORIDE 0.9% 100 ML IVPB SCH ×2 (00:57→09:18)
[2018-11-21 05:38] LABS: BUN Blood Urea Nitrogen 14 mg/dL (7-18); Bicarbonate 30 mmol/L (21-32); Glucose Level 89 mg/dL (74-106); Potassium 3.9 mmol/L (3.5-5.1); Sodium Level 146 mmol/L (136-145)
[2018-11-21] MEDS: THIAMINE HCL 100 MG TABLET FT SCH (09:16)
[2018-11-21] MEDS: SCOPOLAMINE HYDROBROMIDE PATCH TD SCH (09:16)
[2018-11-21] MEDS: POTASSIUM CL SA 10 MEQ TAB PO SCH (09:16)
[2018-11-21] MEDS: FAMOTIDINE 20 MG TAB FT SCH (09:16)
[2018-11-21] MEDS: LOSARTAN POTASSIUM 50 MG TABLET FT SCH (09:17)
[2018-11-21] MEDS: FUROSEMIDE 40 MG/4 ML VIAL IV SCH (09:17)
[2018-11-21] MEDS: ASPIRIN 81 MG CHEWABLE TABLET FT SCH (09:17)
[2018-11-21] MEDS: FOLIC ACID 1 MG TABLET FT SCH (09:17)
[2018-11-21] MEDS: FLUOXETINE 20 MG CAP FT SCH (09:17)
[2018-11-21] MEDS: ENOXAPARIN 40 MG/0.4 ML SQ SCH (09:18)
[2018-11-21 12:01] VITALS: O2SAT 98
[2018-11-21 12:05] VITALS: BP 114/66; TEMP 97.2
--- NOTE | 2018-11-22 06:13 | DS ---
Date of Discharge: 11/21/2018 Disposition: Discharged to go to [facility]. Physical Examination: HEENT: Unremarkable. Lungs: Clear to auscultation. No rhonchi. No rales. Heart: Sounds normal. Abdomen: Soft. Bowel sounds normal. No guarding, rigidity, tenderness, distention. Extremities: No leg edema. Discharge Medications And Instructions: 1.Continue all prior [facility] medications. 2.Take furosemide 40 mg by mouth 2 times a day, Klor-Con 10 mEq by mouth 2 times a day. The patient to be admitted to hospice care upon arrival at nursing. Laboratory Data Done During This Hospitalization: Last chemistry today with sodium 146, potassium 3. 9, chloride 109, bicarb 30, BUN 14, creatinine 0.49, glucose 89. Blood gas when he came in, pH 7.36, pCO2 50, pO2 132, saturation 97.8% on 40% FiO2. Initial white count 6.1, hemoglobin 10.3, platelets 298. Lowest white count during this hospitalization was 3. Lowest hemoglobin was 8.9. He did not require any blood transfusion. Last hemoglobin on 11/18/2018 was 11.3. Hospital Course: This is an 83-year-old pleasant male patient, admitted to the hospital with fever, altered mental status, and shortness of breath. Please see dictated H and P for more information. T he patient was evaluated in the emergency room and was admitted to the hospital with pneumonia due to influenza type B viral infection, volume depletion and acute respiratory failure with CO2 retention due to viral pneumonia. Initially, he required BiPAP therapy along with oxygen. He was given Tamifl u 75 mg twice a day for 5 days and initially he was kept on isolation after treatment given to him fo r flu. After completion of treatment, isolation was discontinued. He was given IV fluid for volume depletion. During this hospitalization, he developed congestive heart failure and initially I though t it was due to diastolic congestive heart failure. Echocardiogram was done, which revealed ejection fraction of 32%, so we believe that what the patient has now is chronic systolic congestive heart fa ilure with acute exacerbation of this problem noted during this hospitalization. When started notice trouble with congestive heart failure, his IV fluid was discontinued. He was started on IV Lasix 40 mg daily and responded very well. There was also concerned about pneumonia at the same time, so he was given IV Unasyn. His lung findings were improving. Repeat chest x-ray showed resolution of abno rmality noted on the previous chest x-ray with IV Lasix and yesterday we were thinking about discharg ing to go to [facility] and all of a sudden, he had some problem with cough and some rattling type of sound in his chest as reported and yesterday, we had to give him extra dose of Lasix 40 mg be cause of flare-up of congestive heart failure problem. This morning, his lungs are clear to ausculta tion again. was made aware of the fact that this kind of changes in his clinical condition as w ell as lung findings may happen from day to day or hour to hour, that is to be expected with his situ ation. On other hand, giving him diuretic medication. On the other hand, may cause electrolyte and kidney problems also, and overall his prognosis is very poor because of overall his age, congestive h eart failure, advanced senile dementia, poor nutrition, and very overall poor health. We talked abou t feeding tube and after talking to children, the patient's decided not to pursue any feeding tu be and upon discharge from the hospital, when he goes back to [facility], she will put him back on hospice care. I am afraid that he will have rapid decline and all those details were discussed with the patient's . Final Diagnoses: 1.Pneumonia, viral, due to influenza type B. 2.Volume depletion. 3.Acute respiratory failure with CO2 retention, due to viral pneumonia. 4.Congestive heart failure, chronic, systolic, with acute exacerbation. 5.Anemia, chronic, unspecified. 6.Leukocytopenia, due to viral infection. 7.Senile dementia, advanced. 8.Coronary artery disease. 9.Diverticulosis. 10.Osteoarthritis, multiple sites. 11.Prostate cancer. TROY/MODL Voice ID: [id number] Report ID: [id number]
== END 2018-11-21 13:05 | DRG 193 ==
LOC: ER 10:57 → ERHOLD 14:10 → 2ND 14:58 → 4TH 17:03
PROVIDERS: ADMIT Internal Medicine; ATTEND Internal Medicine
PROC: 5A09457 Assistance with Respiratory Ventilation, 24-96 Consecutive Hours, Continuous Positive Airway Pressure (ICD-10-PCS; principal; 2018-11-12)
DX: J12.9 Viral pneumonia, unspecified (principal); J96.00 Acute respiratory failure, unspecified whether with hypoxia or hypercapnia; I50.23 Acute on chronic systolic (congestive) heart failure; E87.2 Acidosis; J10.08 Influenza due to other identified influenza virus with other specified pneumonia; F03.90 Unspecified dementia, unspecified severity, without behavioral disturbance, psychotic disturbance, mood disturbance, and anxiety; I25.10 Atherosclerotic heart disease of native coronary artery without angina pectoris; K57.90 Diverticulosis of intestine, part unspecified, without perforation or abscess without bleeding; M19.90 Unspecified osteoarthritis, unspecified site; E86.9 Volume depletion, unspecified; E87.6 Hypokalemia; D64.9 Anemia, unspecified; Z85.46 Personal history of malignant neoplasm of prostate
CPT/HCPCS: 36415; 51702; 71045; 74018; 80048; 80053; 80076; 81003; 81015; 82550; 82805; 82962; 83605; 83690; 83735; 83880; 84145; 84484; 85025; 85610; 85730; 87040; 87086; 87088; 87804; 93005; 93306; 94640; 94660; 94760; 96365; 96375; 99291; 99292; J0295; J1650; J1940; J2543; J2920; J2930; J7030